=== PATIENT | male | born 1945 | race Caucasian/White ===

== ENCOUNTER 2017-05-18 10:08 | Day surgery (SDC) | payer MEDICARE, BC ==
[~2017-05-18] VITALS: Ht 175.3 cm; Wt 67.5 kg
[~2017-05-18 10:08] MED LIST: NS 1000P @30 MLS/HR (KVO) IV SCH
[2017-05-18 10:39] VITALS: BP 183/96; PULSE 66; RESP 17; TEMP 98.2; O2SAT 100
[2017-05-18] MEDS ORDERED: FIORINAL2 PO (10:46)
[2017-05-18] MEDS ORDERED: LISI10TA3 PO (10:46)
[2017-05-18] MEDS ORDERED: ATOR10TA15 PO (10:46)
[2017-05-18] MEDS ORDERED: MULT-65 PO (10:46)
[2017-05-18] MEDS ORDERED: BISO5TAB5 PO (10:46)
[2017-05-18] MEDS ORDERED: TYLE325T PO (10:46)
[2017-05-18] MEDS ORDERED: RAPA8CAP PO (10:46)
[2017-05-18] MEDS ORDERED: TRAM50TA PO (10:46)
[2017-05-18] MEDS ORDERED: OMEP20TA PO (10:46)
[2017-05-18 10:52] LABS: AUTOMATED NEUTROPHIL # 6.1 TH/MM3 (1.8-7.7); BASOPHIL % 0.3 % (0.0-2.0); EOSINOPHIL % 0.2 % (0.0-4.0); HEMATOCRIT 41.5 % (39.0-51.0); HEMO FLAGS DIFF FINAL; LYMPHOCYTE # 0.9 TH/MM3 (1.0-4.8); MEAN CELL VOLUME 93.1 FL (80.0-100.0); MEAN CORPUSCULAR HGB CONC 35.5 % (32.0-36.0); MONO % 4.9 % (0.0-8.0); NEUT % 82.6 % (16.0-70.0); PLATELET COUNT 196 TH/MM3 (150-450); RED BLOOD COUNT 4.46 MIL/MM3 (4.50-5.90); RED CELL DISTRIBUTION WIDTH 13.8 % (11.6-17.2); WHITE BLOOD COUNT 7.4 TH/MM3 (4.0-11.0)
[2017-05-18 11:01] LABS: APTT (PATIENT) 27.1 SEC (24.3-30.1); PROTHROMBIN TIME - PATIENT 11.4 SEC (9.8-11.6)
[2017-05-18 11:11] LABS: BICARBONATE 27.1 MEQ/L (21.0-32.0)
[2017-05-18] MEDS ORDERED: HEPARIN-NS/PF INJ 500 ML ONE (14:02)
[2017-05-18] MEDS ORDERED: MIDAZOLAM HCL 2 MG/2 ML VIAL ONE ×2 (14:03→14:22)
[2017-05-18] MEDS ORDERED: IOHEXOL 350 MG/ML 50 ML BTL (for Cath Lab) OTHER ONE (14:23)
[2017-05-18] MEDS ORDERED: IOHEXOL 350 MG/ML 100 ML BTL (for Cath Lab) OTHER ONE (14:23)
--- NOTE | 2017-05-18 15:02 | CATHPROC ---
Yuanfen~Flow™ HIS Report Study Information Study Number Admission Scheduled Start Study Start [id number].May 18 2017 10:08AM 05/18/2017 May 18 2017 2:00PM [facility] [employer] Service Cardiac Catheterization Admit Source Facility Department Other [facility] - Pre Planning Advisor Physician and Clinical Staff Initial Felipe Corbett Pest Control Technician Cuong Holland,SUARABH Recorder Madhu Burden,RT(R) Scrub Hieu Ivan,RT(R) Procedures Performed Procedure Location (Site) Vessel Name Angiogram LV LV Ventricle Coronary Angiograms LCA Left Coronary Coronary Angiograms RCA Right Coronary Coronary Angiograms DAVE-LAD Left Coronary Equipment Time Finish Repairer Description Size Mfg Part Number Used/Scraped TRANSDUCER, TRUWAVE [id number] 14:01 Chogger * Used W/STOCKCOCK *[id number] 534-548T *[id number] [id number] *[id number] [id number] *[id number] 14:01 [employer] INDUSTRIES PACK, CCL CUSTOM * Used *[id number] 14:01 [employer] PACER PEN, SKIN DUAL W/ RULER * Used *[id number] 14:01 Grupo A WIRE, 3MMJ .035 180CM 180CM Used *[id number] PROBE COVER, STERILE [id number] 14:01 [employer] * Used ULTRASOUND W/ GEL *[id number] 14:01 NAMIC MANIFOLD, 4 PORT * Used *[id number] 14:01 NAMIC TUBING, HIGH PRESSURE 48" 48" Used *[id number] 14:01 NYCOMED OMNIPAQUE, 350 MG, 150ML 150ML [id number] Used [id number] 14:01 [facility] BLANKET,WARM AIR CCL * Used *[id number] 14:01 TERUMO MEDICAL SHEATH, FR5 TERUMO (10CM) FR 5 [id number] Used History: Allergies Allergy Reaction Sulfa Trimethoprim History: Risk Factors Family History of Hypertension Dyslipidemia Previous OR Previous Heart Failure Premature CAD Yes Yes Yes No No Prior Valve Prior PCI Prior CABG Surgery No No No Cerebrovascular Peripheral Artery Chronic Lung On Dialysis Diabetes Disease Disease Disease No No No No No History: Stress Tests Stress or Imaging Studies Performed Yes Standard Exercise Stress Test No Stress Echo No Stress Test SPECT Stress Test SPECT Result Stress Test SPECT Ischemia Risk/Extent Yes Positive High Stress Test CMR No Cardiac CTA Coronary Calcium Score No No History: Other Current Smoker No Labs Hgb (g/dl) Hct (%) WBC (l/cumm) Platelets (thousands) 11.60-17.00 35.00-51.00 4.00-11.00 150.00-450.00 4.4 41.5 7.4 196 Glucose (mg/dl) BUN (mg/dl) Creatinine (mg/dl) BUN:Creatinine (1:x) 74.00-106.00 7.00-18.00 0.50-1.30 10.00-20.00 98 11 1.0 11 Na (meq/l) K (meq/l) 136.00-145.00 3.50-5.10 132 4 CPK-MB (ng/ML) 0.50-3.60 Not Drawn Medication Medication Total Dose (Bolus/Oral) Medication Total Dosage/Unit 1% XYLOCAINE 20 mL FENTANYL 25 mcg VERSED 2 mg Medications (Bolus/Oral) Medication Time Given Dosage/Unit Administered By Reason VERSED 05/18/2017 2:17:15 PM 1 mg Cuong Holland Patient arrived on 1 mg VERSED given by Cuong Holland RN in Left Forearm via Peripheral IV. Ordered by Felipe Alegre. FENTANYL 05/18/2017 2:18:39 PM 25 mcg Cuong Holland Patient arrived on 25 mcg FENTANYL given by Cuong Holland RN in Left Forearm via Peripheral IV. Orde red by Felipe Alegre. 1% XYLOCAINE 05/18/2017 2:23:39 PM 20 mL Felipe Alegre Patient arrived on 20 mL 1% XYLOCAINE given by Felipe Alegre in Right Groin via Subcutaneous. Order ed by Felipe Alegre. VERSED 05/18/2017 2:38:38 PM 1 mg Cuong Holland Patient arrived on 1 mg VERSED given by Cuong Holland RN in Left Forearm via Peripheral IV. Ordered by Felipe Alegre. Medication (Drip) Medication Time Given Dosage/Unit Concentration/Unit Diluent (ml) Solution IV Solutions 05/18/2017 2:07:18 PM 0 mL (IV) 500 NaCl .9 Patient arrived on IV Solutions given by Felipe Alegre in Left Forearm via Peripheral IV. Pump/Drip Flow = 20 ml/hr using NaCl .9. Ordered by Felipe Alegre. Initial Case Assessment Cardiovascular HR Rhythm NIBP Chest Pain 80 sr 204/101 0 Edema Present Skin color Skin None Normal Warm Dry Circulatory - Right Pulses Dorsalis Pedis Femoral 2 2 Scale (0,1,2,3,4,d) Circulatory - Left Pulses Dorsalis Pedis Femoral 2 2 Scale (0,1,2,3,4,d) Neurological State Oriented to time-place- Alert Moves all extremities person Respiration - General Respiration Rate SpO2 (%) O2 (lpm) (B/min) 15 100 0 Chronological Log Time Study Chronological Log 14:04:26 Patient arrived via Bed. 14:04:28 Patient Name, D.O.B, / Armband Verified By R.N. 14:04:29 Consent signed by the physician and the patient and verified by the Pre Planning Advisor staff. 14:04:31 Pre-op and post- op instructions given; patient acknowledges understanding of instructions. 14:04:40 Verbal Stimulation=2 Physical Stimulation=2 Airway=2 Respiration=2 TOTAL=8. (0=absent, 1=li mited, 2=present) 14:04:57 Presedation assessment performed by Pre Planning Advisor RN. 14:05:00 Patient has been NPO for More than 6Hrs. Vitals capture started with the following parameters, Patient=Adult, Interval=5 min, Initial Pr zxomkp=206 mmHg, 14:05:21 Deflation Rate=5 mmHg 14:05:51 Skin Breakdown-none present per patient. 14:06:44 Patient Warmer Placed on the Table. 14:06:48 A # 20 IV was noted in the Forearm (left). Grade = 0 14:06:54 ERSS=909/101 mmhg, HrM3=772.0 %, Baugh=2 Patient arrived on IV Solutions given by Felipe Alegre in Left Forearm via Peripheral IV. Pum p/Drip Flow = 20 ml/hr 14:07:18 using NaCl .9. Ordered by Felipe Alegre. 14:07:38 History and physical on the chart or being dictated. Assessment: Initial Case, HR=80 BPM, Rhythm=sr, VXZR=471/101 mmhg, Chest Pain=0, Edema=None, Co laine=Normal, Skin = Warm, Dry Right Pulses: Reed Ped=2, Femoral=2 14:07:40 Left Pulses: Reed Ped=2, Femoral=2 Neurological: State=Alert, Ox3, JEFFERY Respiration: Resp=15 B/min, XrW4=057 %, O2=0 lpm 14:08:02 Reference ECG taken 14:11:08 HR=83 bpm, HZSI=006/111 mmhg, LoS3=812.0 %, Resp=21 B/min, Baugh=2 14:16:11 HR=81 bpm, DQTF=338/106 mmhg, SpO2=99.0 %, Resp=16 B/min, Baugh=2 Patient arrived on 1 mg VERSED given by Cuong Holland RN in Left Forearm via Peripheral IV. Or dered by Codey, 14:17: Felipe. Patient arrived on 25 mcg FENTANYL given by Cuong Holland RN in Left Forearm via Peripheral IV . Ordered by Codey, : Felipe. :: Pressure channel 1 zeroed. 14:21:12 HR=81 bpm, SMTX=837/104 mmhg, OrZ6=987.0 %, Resp=12 B/min Time Out. Correct patient, correct procedure,correct physician, ,power injector loaded with jana sauceda with surgical team 14::52 present. Time Out Concurred by MD, individual staff and FEATHER SAWYER in procedure. Loaded by Cuong zelaya., verified by Hieu Ivan 14:: Presedation re-assessment performed by Pre Planning Advisor RN. 14::28 Case Start 14::29 Verbal Stimulation=2 Physical Stimulation=2 Airway=2 Respiration=2 TOTAL=8. (0=absent, 1=li mited, 2=present) Patient arrived on 20 mL 1% XYLOCAINE given by Felipe Alegre in Right Groin via Subcutaneous. Ordered by ::39 Felipe Alegre. 14::47 Access site was Right Femoral Artery. 14::52 A SHEATH, FR5 TERUMO (10CM) FR 5 was advanced into the Fem Art (right) using the Percutaneo us technique. A PIGTAIL ANG. INFINITI CATHETER FR 5 was advanced over a wire. OMNIPAQUE, 350 MG, 150ML 150ML was used 14:24:05 for injections. Recorded Pressure: LV, HR=88, Condition=Condition 1 14:26:01 (Left Ventricle) LV 184/-12/10 14:26:07 HR=84 bpm, WSZW=800/92 mmhg, PvO0=772.0 %, Resp=19 B/min, Baugh=2 14:26:17 The LV was injected at 10 cc/sec for a total of 30. OMNIPAQUE, 350 MG, 150ML 150ML used. Recorded Pressure: LV, Ao, HR=92, Condition=Condition 1 14:27:48 (Left Ventricle) LV 162/6/6, (Aorta) Ao 168/82/121 14:28:00 Catheter was removed A AR MOD INFINITI CATHETER FR 5 was advanced over a wire. OMNIPAQUE, 350 MG, 150ML 150ML was us ed for 14:28:02 injections. Recorded Pressure: Ao, HR=88, Condition=Condition 1 14:29:18 (Aorta) Ao 168/88/123 14:30:10 The RCA was injected and visualized at various angles. OMNIPAQUE, 350 MG, 150ML 150ML use d. 14:31:06 HR=86 bpm, FRIY=296/94 mmhg, LeX3=439.0 %, Resp=19 B/min, Baugh=2 14:32:23 The DAVE-LAD was injected and visualized at various angles. OMNIPAQUE, 350 MG, 150ML 150ML used. 14:33:36 Catheter was removed A JL 4.0 INFINITI CATHETER FR 5 was advanced over a wire. OMNIPAQUE, 350 MG, 150ML 150ML was u sed for 14:33:38 injections. 14:33:58 The LCA was injected and visualized at various angles. OMNIPAQUE, 350 MG, 150ML 150ML use d. 14:36:07 HR=81 bpm, ORQN=708/92 mmhg, JoT1=020.0 %, Resp=13 B/min, Baugh=2 14:36:29 Catheter was removed 14:36:42 Case End 14:37:42 Sheath removed; pressure applied to access site. 14:38:27 No case complications noted. 14:38:29 Cine recording checked. 14:38:31 Bedside Report will be given. Patient arrived on 1 mg VERSED given by Cuong Holland, RN in Left Forearm via Peripheral IV. O rdered by Codey, 14:38:38 Felipe. 14:39:07 Catheter(s) removed without difficulty 14:39: Bedside Report will be given. 14:39:28 Contrast Scanned 14:41:06 HR=84 bpm, RUYV=293/95 mmhg, KnT4=285.0 %, Resp=8 B/min, Baugh=2 14:46:03 HR=83 bpm, RIXU=234/102 mmhg, KkJ6=734.0 %, Resp=15 B/min, Baugh=2 14:51:05 HR=86 bpm, NXYD=290/107 mmhg, Resp=22 B/min, Baugh=2 14:51:15 Sterile dressing applied to site 14:53:32 [facility] End Study - Contrast Media Used In Study Contrast Total Opened (mL) Total Used (mL) Total Wasted (mL) Omnipaque 110 110 0 End Study - Maximum Contrast Load Max Contrast Load (mL) 337.5 End Study - Radiation Exposure Fluoro Time (minutes) 3.7 End Study - Patient Disposition Complications Transferred To Telemetry Bed
[2017-05-18] MEDS ORDERED: NITROGLYCERIN 400 MCG/SPRAY 4.9 GM BOTTLE SL ONE (15:22)
[2017-05-18] MEDS ORDERED: SODIUM CHLOR 0.9% 1000 ML INJ 500 ML SCH (15:34)
[2017-05-18] MEDS ORDERED: PAPAVERINE INJ 60 MG, NITROGLYCERIN INJ 100 MCG, DILTIAZEM INJ 100 MG in SODIUM CHLORID... IRRIGATION SCH (15:45)
[2017-05-18] MEDS ORDERED: INSULIN REGULAR (IV INFUSION) 100 UNITS in SODIUM CHLORIDE 0.9% INJ 99 ML IV SCH (15:45)
[2017-05-18] MEDS ORDERED: CEFAZOLIN INJ 500 MG in SODIUM CHLORIDE 0.9% IRR BTL 500 ML IRRIGATION SCH (15:45)
[2017-05-18] MEDS ORDERED: CHLORHEXIDINE GLUCONATE 4% SOLN 120 ML BTL TOPICAL SCH (15:45)
[2017-05-18] MEDS ORDERED: SODIUM CHLORIDE 0.9% FLUSH 10 ML FLUSH IV FLUSH PRN (15:45)
[2017-05-18] MEDS ORDERED: ceFAZolin 2 GM PREMIX 50 ML IV SCH (15:45)
[2017-05-18] MEDS ORDERED: METOPROLOL TARTRATE 25 MG TAB PO SCH (15:45)
--- NOTE | 2017-05-18 16:07 | EKG ---
Date Performed: 05/18/2017 Time Performed: 10:46:08 PTAGE: 71 years EKG: Sinus rhythm Right bundle branch block Abnormal ECG NO PREVIOUS TRACING DOCTOR: Shawnee Horta Interpretating Date/Time 05/18/2017 16:07:01
[2017-05-18] MEDS ORDERED: ISOSORBIDE MONONITRATE 30 MG TAB PO ONE (16:15)
[2017-05-18] MEDS ORDERED: PILL SPLITTER OTHER PRN (16:15)
--- NOTE | 2017-05-18 16:31 | PD.CONS ---
History of Present Illness Service CT Surgery Consult Requested By Dr. Alegre Reason for Consult Multivessel CAD Primary Care Physician Mary Porras M.D. Diagnoses: (1) CAD (coronary artery disease) (2) Anginal equivalent History of Present Illness 71y/o mal presents to his PCP with c/o fatigue. He was recently evaluated for elevated PSA and changed physicians leading to an EKG which was abnormal. He was referred to Dr. Alegre and had a stress test. This was abnormal as well. He underwent left heart cath today which shows multivessel CAD. He had an office echo which was unremarkable for any valve issues. He is being considered for CABG. He denies chest pain, chest pressure, diaphoresis, nausea , dyspnea, palpitations. Review of Systems Constitutional: COMPLAINS OF: Fatigue, DENIES: Diaphoretic episodes, Fever, Weight gain, Weight loss, Chills, Dizziness, Change in appetite, Night Sweats Endocrine: DENIES: Heat/cold intolerance, Polydipsia, Polyuria, Polyphagia Eyes: DENIES: Blurred vision, Diplopia, Eye inflammation, Eye pain, Vision loss , Photosensitivity, Double Vision Ears, nose, mouth, throat: DENIES: Tinnitus, Hearing loss, Vertigo, Nasal discharge, Oral lesions, Throat pain, Hoarseness, Ear Pain, Running Nose, Epistaxis, Sinus Pain, Toothache, Odynophagia Respiratory: DENIES: Apneas, Cough, Snoring, Wheezing, Hemoptysis, Sputum production, Shortness of breath Cardiovascular: DENIES: Chest pain, Palpitations, Syncope, Dyspnea on Exertion , PND, Lower Extremity Edema, Orthopnea, Claudication Gastrointestinal: DENIES: Abdominal pain, Black stools, Bloody stools, Constipation, Diarrhea, Nausea, Vomiting, Difficulty Swallowing, Anorexia Genitourinary: DENIES: Sexual dysfunction, Urinary frequency, Urinary incontinence, Urgency, Hematuria, Dysuria, Nocturia, Penile Discharge, Testicular Pain, Testicular Swelling Musculoskeletal: DENIES: Joint pain, Muscle aches, Stiffness, Joint Swelling, Back pain, Neck pain Integumentary: DENIES: Abnormal pigmentation, Nail changes, Pruritus, Rash Hematologic/lymphatic: DENIES: Bruising, Lymphadenopathy Immunologic/allergic: DENIES: Eczema, Urticaria Neurologic: DENIES: Abnormal gait, Headache, Localized weakness, Paresthesias, Seizures, Speech Problems, Tremor, Poor Balance Psychiatric: DENIES: Anxiety, Confusion, Mood changes, Depression, Hallucinations, Agitation, Suicidal Ideation, Homicidal Ideation, Delusions Past Family Social History Allergies: Coded Allergies: Sulfa (Verified Allergy, Severe, 05/18/17) Trimethoprim (Verified Allergy, Severe, 05/18/17) Past Medical History HTN BPH Hyperlipidemia Reported Medications Rapaflo 8mg po qD Lisinopril 10mg po qD Bisoprolol 5mg po qd Atorvastatin 10mg po qhs MVI 1 po qd Omeprazole 20mg po qd Family History CAD in his father and maternal uncle Social History Denies tobacco, ETOH 3 children Physical Exam Vital Signs Vital Signs Date Time Temp Pulse Resp B/P Pulse Ox O2 Delivery O2 Flow Rate FiO2 05/18/17 10:39 98.2 66 17 183/96 100 Physical Exam GENERAL: This is a well-nourished, well-developed patient, in no apparent distress. SKIN: No rashes, ecchymoses or lesions. Cool and dry. HEAD: Atraumatic. Normocephalic. No temporal or scalp tenderness. EYES: Pupils equal round and reactive. Extraocular motions intact. No scleral icterus. No injection or drainage. ENT: Nose without bleeding, purulent drainage or septal hematoma. Throat without erythema, tonsillar hypertrophy or exudate. Uvula midline. Airway patent. NECK: Trachea midline. No JVD or lymphadenopathy. Supple, nontender, no meningeal signs. CARDIOVASCULAR: Regular rate and rhythm without murmurs, gallops, or rubs. RESPIRATORY: Clear to auscultation. Breath sounds equal bilaterally. No wheezes , rales, or rhonchi. GASTROINTESTINAL: Abdomen soft, non-tender, nondistended. No hepato-splenomegaly , or palpable masses. No guarding. MUSCULOSKELETAL: Extremities without clubbing, cyanosis, or edema. No joint tenderness, effusion, or edema noted. No calf tenderness. Negative Homans sign bilaterally. NEUROLOGICAL: Awake and alert. Cranial nerves II through XII intact. Motor and sensory grossly within normal limits. Five out of 5 muscle strength in all muscle groups. Normal speech. Laboratory Laboratory Tests Test 05/18/17 10:30 White Blood Count 7.4 Red Blood Count 4.46 Hemoglobin 14.7 Hematocrit 41.5 Mean Corpuscular Volume 93.1 Mean Corpuscular Hemoglobin 33.0 Mean Corpuscular Hemoglobin 35.5 Concent Red Cell Distribution Width 13.8 Platelet Count 196 Mean Platelet Volume 8.4 Neutrophils (%) (Auto) 82.6 Lymphocytes (%) (Auto) 12.0 Monocytes (%) (Auto) 4.9 Eosinophils (%) (Auto) 0.2 Basophils (%) (Auto) 0.3 Neutrophils # (Auto) 6.1 Lymphocytes # (Auto) 0.9 Monocytes # (Auto) 0.4 Eosinophils # (Auto) 0.0 Basophils # (Auto) 0.0 CBC Comment DIFF FINAL Differential Comment Prothrombin Time 11.4 Prothromb Time International 1.0 Ratio Activated Partial 27.1 Thromboplast Time Sodium Level 132 Potassium Level 4.0 Chloride Level 97 Carbon Dioxide Level 27.1 Anion Gap 8 Blood Urea Nitrogen 11 Creatinine 1.01 Estimat Glomerular Filtration 72 Rate Random Glucose 98 Calcium Level 9.6 Result Diagram: 05/18/17 1030 05/18/17 1030 Course Stable post [facility] Assessment and Plan Problem List: (1) CAD (coronary artery disease) Status: Acute (2) Anginal equivalent Status: Acute Assessment and Plan 71y/o male presents with fatigue and multivessel CAD. CABG is recommended. I discussed the risks and benefits of surgery with him and he agrees to proceed. STS risk is as follows: and Variables - STS Adult Cardiac Surgery Database Version 2.81 RISK SCORES About the STS Risk Calculator Procedure: CAB Only Risk of Mortality: 0.757% Morbidity or Mortality: 7.373% Long Length of Stay: 2.285% Short Length of Stay: 61.893% Permanent Stroke: 0.802% Prolonged Ventilation: 4.075% DSW Infection: 0.138% Renal Failure: 1.376% Reoperation: 3.635% Plan for CABG on 05/24/17 Problem Qualifiers (1) CAD (coronary artery disease): Qualified Code: I25.119 - Coronary artery disease involving [place] coronary artery of [place] heart with angina pectoris Sherry Byrne MD May 18, 2017 16:31
[2017-05-18 16:44] LABS: BLOOD, URINE NEG (NEG); GLUCOSE,URINE NEG (NEG); KETONE, URINE TRACE mg/dL (NEG); NITRITE,URINE NEG (NEG); PH, URINE 7.5 (5.0-8.5); URINE COLOR LIGHT-YELLOW (YELLW/STRAW)
[2017-05-18 16:47] LABS: COMMENT (UR) CULT NOT INDICATED; CULTURE IF INDICATED CULT NOT INDICATED
[2017-05-18] MEDS ORDERED: SODIUM CHLOR 0.9% 1000 ML INJ 1,000 ML IV SCH (17:00)
--- NOTE | 2017-05-18 17:51 | RADRPT ---
EXAM DATE/TIME: 05/18/2017 17:05 [facility] COMPARISON: No previous studies available for comparison. INDICATIONS : Pre op cardiac surgery. MEDICAL HISTORY : Benign prostatic hyperplasia, (BPH) Hypothyroidism. Gastroesophageal reflux disease. Coronary artery disease. Hypertension. Glaucoma. Hiatal hernia. Skin cancer. SURGICAL HISTORY : Cardiac catheterization. ENCOUNTER: Initial ACUITY: 1 day PAIN SCORE: 0/10 LOCATION: Bilateral neck PEAK SYSTOLIC VELOCITIES (cm/sec): ICA/CCA RATIO: Right: 2.0 Left: 1.6 ICA: Right: 126 Left: 130 CCA: Right: 63 Left: 79 ECA: Right: 123 Left: 140 VERTEBRAL: Right: 48 antegrade Left: 50 antegrade Elevated flow velocities and ICA/CCA ratios have been found to correlate with increased degrees of vessel stenosis, calculated as percentage of diameter relative to a normal segment of distal ICA/CCA FINDINGS: There is mild to moderate plaque formation at the carotid bifurcations, slightly worse on the left si de. Probably less than 50% stenosis. No significant stenosis on the left. Vertebral artery flow anteg rade bilaterally. CONCLUSION: 1. Mild to moderate plaque at the carotid arteries bilaterally predominantly around the bifurcations and slightly worse on the right side. Stenosis less than 50%. Dante Kuhn MD on May 18, 2017 at 17:47 Board Certified Radiologist. This report was verified electronically.
--- NOTE | 2017-05-18 18:17 | RADRPT ---
EXAM DATE/TIME: 05/18/2017 16:28 [facility] COMPARISON: No previous studies available for comparison. INDICATIONS : Pre op cardiac surgery. MEDICAL HISTORY : Benign prostatic hyperplasia, (BPH) Hypothyroidism. Gastroesophageal reflux disease. Coronary artery disease. Hypertension. Glaucoma. Hiatal hernia. Skin cancer. SURGICAL HISTORY : Cardiac catheterization. ENCOUNTER: Initial ACUITY: 1 day PAIN SCORE: 0/10 LOCATION: Bilateral legs. TECHNIQUE: Venous ultrasound of the left and right leg was performed from the inguinal ligament to the proximal calf. Real-time, color Doppler and spectral tracing, compression and augmentation techniques were us ed. FINDINGS: RIGHT LEG: There is normal compressibility of the deep venous system from the inguinal region to the proximal ca lf. No echogenic clot is seen in the lumen of the common femoral, femoral, popliteal, and posterior tibial veins. There is a normal response of the venous system to proximal and distal augmentation an d respiration. LEFT LEG: There is normal compressibility of the deep venous system from the inguinal region to the proximal ca lf. No echogenic clot is seen in the lumen of the common femoral, femoral, popliteal, and posterior tibial veins. There is a normal response of the venous system to proximal and distal augmentation an d respiration. CONCLUSION: Normal examination. Dionicio Camp Jr., MD on May 18, 2017 at 18:13 Board Certified Radiologist. This report was verified electronically.
--- NOTE | 2017-05-18 18:18 | RADRPT ---
EXAM DATE/TIME: 05/18/2017 16:41 [facility] COMPARISON: No previous studies available for comparison. INDICATIONS : Pre op cardiac surgery. MEDICAL HISTORY : Benign prostatic hyperplasia, (BPH) Hypothyroidism. Gastroesophageal reflux disease. Coronary artery disease. Hypertension. Glaucoma. Hiatal hernia. Skin cancer. SURGICAL HISTORY : Cardiac catheterization. ENCOUNTER: Initial ACUITY: 1 day PAIN SCORE: 0/10 LOCATION: Bilateral legs. GREATER SAPHENOUS VEIN THIGH: PROXIMAL: Right 2 mm Left 4 mm MID: Right 3 mm Left 2 mm DISTAL: Right 3 mm Left 3 mm CALF: PROXIMAL: Right 3 mm Left 1 mm MID: Right 2 mm Left 1 mm DISTAL: Right 2 mm Left 2 mm FINDINGS: The venous system of the lower extremities are patent by color Doppler imaging. Measurements of the leg veins (in mm) are listed above. CONCLUSION: Venous mapping as detailed above. Dionicio Camp Jr., MD on May 18, 2017 at 18:15 Board Certified Radiologist. This report was verified electronically.
[2017-05-18 19:05] LABS: HDL CHOLESTEROL 32.1 MG/DL (40.0-60.0); INDIRECT BILIRUBIN 0.5 MG/DL (0.0-0.8); TOTAL BILIRUBIN ADULT 0.6 MG/DL (0.2-1.0)
--- NOTE | 2017-05-18 19:40 | RADRPT ---
EXAM DATE/TIME: 05/18/2017 19:17 [facility] COMPARISON: No previous studies available for comparison. INDICATIONS : Evaluate for pneumonia, pneumothorax, or communicable diseases. MEDICAL HISTORY : None. SURGICAL HISTORY : None. ENCOUNTER: Initial ACUITY: 1 day PAIN SCORE: 0/10 LOCATION: chest FINDINGS: PA and lateral views of the chest demonstrate the lungs to be symmetrically aerated without evidence of mass, infiltrate or effusion. A calcified granuloma within the left lung base. Calcified lymph no de within the left hilum. The cardiomediastinal contours are unremarkable. Osseous structures are in tact. CONCLUSION: 1. Prior granulomatous disease. 2. No acute cardiopulmonary disease. 3. Hyperaerated lungs. Dionicio Camp Jr., MD on May 18, 2017 at 19:37 Board Certified Radiologist. This report was verified electronically.
[2017-05-18] MEDS ORDERED: SODIUM CHLORIDE 0.9% FLUSH 10 ML FLUSH IV FLUSH SCH (21:00)
[2017-05-18] MEDS ORDERED: MUPIROCIN 2% OINT 1 APPLIC/GM SYR EACH NARE SCH (21:00)
--- NOTE | 2017-05-19 15:39 | MR ---
cc: CAROLYN BROWN DATE: INDICATION Class II angina, high-risk nuclear marker perfusion study. PROCEDURE PERFORMED 1. Retrograde left heart catheterization with left ventriculography and selective coronary angiography. 2. Left internal mammary artery angiography. ACCESS SITE Right femoral artery. EQUIPMENT USED 5-Guyanese pigtail, 5-Guyanese JL4 and AR modified coronary artery catheters. MEDICATIONS Versed IV, Fentanyl IV. CONTRAST Omnipaque 110 cc. COMPLICATIONS None. METHOD OF HEMOSTASIS Manual compression. RESULTS HEMODYNAMICS Heart rate 75 beats per minute. Left ventricular end-diastolic pressure 6 mmHg. Left ventricle 162/6/6. Aorta 162/88/123. LEFT VENTRICULOGRAPHY Left ventricular ejection fraction 60%. Wall motion normal. No mitral regurgitation. CORONARY ANGIOGRAPHY The coronary artery has 70% stenosis in the distal portion. The proximal LAD has 70% stenosis. The mid and distal LAD is patent. The first diagonal artery has 70% proximal stenosis. The second diagonal artery is patent. The third diagonal artery is patent. Left circumflex artery has 60% ostial stenosis and 90% stenosis in the proximal portion. OM-1 is patent. The right coronary is a dominant vessel with 80% stenosis in at ostium and 90% stenosis in the distal portion. PDA patent. PLV patent. The left ___ artery and left subclavian artery were patent. DIAGNOSES 1. Severe multivessel coronary artery disease. 2. Preserved left ventricular systolic function. DISPOSITION Mr. Lee was found to have evidence of severe multivessel coronary artery disease. He had high-risk nuclear myocardial perfusion study. He will be scheduled for coronary artery bypass. Dr. Byrne was consulted for cardiothoracic surgery. MD EDWARD Rodriguez/SUDARSHAN /3:04 PM /2:46 PM
== END 2017-05-18 20:00 | disposition home or self-care (01) ==
LOC: HDOC 10:08 → HDIC 10:08 → HDOC 20:00
PROVIDERS: ATTEND Internal Medicine Interventional Cardiology
DX: I25.119 Atherosclerotic heart disease of native coronary artery with unspecified angina pectoris (principal); R94.31 Abnormal electrocardiogram [ECG] [EKG]; I45.10 Unspecified right bundle-branch block; K21.9 Gastro-esophageal reflux disease without esophagitis; N40.0 Benign prostatic hyperplasia without lower urinary tract symptoms; I10 Essential (primary) hypertension; E78.5 Hyperlipidemia, unspecified; R42 Dizziness and giddiness; E03.9 Hypothyroidism, unspecified; M19.90 Unspecified osteoarthritis, unspecified site; R79.89 Other specified abnormal findings of blood chemistry; Z01.818 Encounter for other preprocedural examination
CPT/HCPCS: 71020; 80048; 80061; 80076; 81001; 85025; 85610; 85730; 86850; 86900; 86901; 86920; 87641; 93005; 93458; 93880; 93970; 93998; C1769; C1893; J1644; J2250; J3010; Q9967

== ENCOUNTER 2017-05-23 15:11 | Inpatient (IN) | payer MEDICARE, BC ==
[~2017-05-23] VITALS: Ht 175.3 cm; Wt 70.5 kg
[~2017-05-23 15:11] MED LIST changes: +BISO5TAB5 PO; +LISI10TA3 PO; +MULT-65 PO; -NS 1000P @30 MLS/HR (KVO) IV SCH; +OMEP20TA PO; +RAPA8CAP PO; +TYLE325T PO
[2017-05-24] VITALS (11 sets, daily range): BP systolic 75–183; BP diastolic 40–92; PULSE 64–139; RESP 9–18; TEMP 95.8–99.4; O2SAT 92–99
[2017-05-24] MEDS ORDERED: ARTIFICIAL TEARS OPTH OINT 3.5 APPLIC/3.5 GM TUBO ONE (05:00)
[2017-05-24] MEDS ORDERED: HEPARIN SODIUM - SQ 10,000 UNITS/ML VIAL SQ ONE (05:00)
[2017-05-24] MEDS ORDERED: PROTAMINE SULFATE 250 MG/25 ML VIAL IV ONE (05:00)
[2017-05-24] MEDS ORDERED: VECURONIUM BROMIDE 10 MG VIAL IV ONE (05:00)
[2017-05-24] MEDS ORDERED: ESMOLOL HCL 100 MG/10 ML VIAL IV ONE (05:00)
[2017-05-24] MEDS ORDERED: CALCIUM CHLORIDE 10% SOLN 1 GRAM/10 ML SYR IV ONE ×2 (05:00→16:15)
[2017-05-24] MEDS ORDERED: MAGNESIUM SULFATE 1000 MG/2 ML VIAL (PED) IV ONE (05:00)
[2017-05-24] MEDS ORDERED: PHENYLEPHRINE HCL 10 MG/ML VIAL IV ONE (05:00)
[2017-05-24] MEDS ORDERED: AMINOCAPROIC ACID INJ 250 MG/ML 20 ML VIAL IV ONE ×2 (05:00→12:06)
[2017-05-24] MEDS ORDERED: NITROGLYCERIN-DEXTROSE INJ 250 ML IV ONE (05:00)
[2017-05-24] MEDS ORDERED: LACTATED RINGER'S 1000 ML IV PRN (05:45)
[2017-05-24] MEDS ORDERED: CHLORHEXIDINE GLUCONATE 2 % 1 PACK (2 CLOTHS) TOPICAL PRN (05:45)
[2017-05-24] MEDS ORDERED: SODIUM CHLORID 0.9% 500 ML IV PRN (05:45)
[2017-05-24] MEDS ORDERED: PAPAVERINE 60 MG-NITROGLYCERIN 100 MCG-DILTIAZEM 100 MG in NS 100 ML IRRIGATION SCH ×4 (05:45)
[2017-05-24] MEDS ORDERED: METOPROLOL TARTRATE 25 MG TAB PO PRN (05:45)
[2017-05-24] MEDS ORDERED: INSULIN HUMAN REGULAR 1,000 UNITS/10 ML VIAL SQ PRN (05:45)
[2017-05-24] MEDS ORDERED: METOPROLOL TARTRATE 25 MG TAB PO SCH (05:45)
[2017-05-24] MEDS ORDERED: INSULIN REGULAR 100 UNITS in NS 100 ML IV SCH (05:45)
[2017-05-24] MEDS ORDERED: ceFAZolin 2 GM PREMIX 50 ML IV SCH (05:45)
[2017-05-24] MEDS ORDERED: POVIDONE IODINE 5% (ANTISEPSIS KIT) 4 APPLICATIONS EACH NARE PRN (05:45)
[2017-05-24] MEDS ORDERED: CEFAZOLIN 500 MG in NS IRR BTL 500 ML IRRIGATION SCH (05:45)
[2017-05-24] MEDS ORDERED: CHLORHEXIDINE GLUCONATE 4% SOLN 120 ML BTL TOPICAL SCH (05:45)
[2017-05-24] MEDS ORDERED: VANCOMYCIN HCL 1000 MG VIAL ONE (06:20)
[2017-05-24] MEDS ORDERED: methylPREDNISolone SOD SUCC 125 MG/2 ML VIAL ONE (06:21)
[2017-05-24] MEDS ORDERED: HEPARIN SODIUM - SQ 10,000 UNITS/ML VIAL ONE (06:21)
[2017-05-24] MEDS ORDERED: ceFAZolin 2 GM PREMIX 50 ML ONE (06:21)
[2017-05-24] MEDS ORDERED: CARDIOPLEGIC IRR 1,000 ML ONE (07:19)
[2017-05-24] MEDS ORDERED: HEPARIN SODIUM - IV 10,000 UNITS/10 ML VIAL ONE (07:19)
[2017-05-24] MEDS ORDERED: MANNITOL INJ 50 ML ONE (07:20)
[2017-05-24] MEDS ORDERED: POTASSIUM CHLORIDE 40 MEQ/20 ML VIAL ONE (07:20)
[2017-05-24] MEDS ORDERED: ALBUMIN HUMAN 25% 12.5 GM/50 ML BAGP IV ONE (07:20)
[2017-05-24] MEDS ORDERED: CHLORHEXIDINE GLUCONATE 2 % 1 PACK (2 CLOTHS) TOPICAL ONE (07:30)
[2017-05-24] MEDS ORDERED: DEXMEDETOMIDINE HCL 200 MCG/2 ML VIAL ONE (11:40)
[2017-05-24] MEDS ORDERED: LACTATED RINGER'S 1000 ML INJ 500 ML IV PRN (11:44)
[2017-05-24] MEDS ORDERED: hydrALAZINE HCL 20 MG/ML VIAL IV PRN (11:45)
[2017-05-24] MEDS ORDERED: CALCIUM CHLORIDE 10% 1 GRAM/10 ML VIAL IV PRN (11:45)
[2017-05-24] MEDS ORDERED: ACETAMINOPHEN 650 MG SUPP RECTAL PRN (11:45)
[2017-05-24] MEDS ORDERED: RESP: RACEPINEPHRINE 2.25% 0.5 ML NEB NEB PRN (11:45)
[2017-05-24] MEDS ORDERED: ONDANSETRON HCL 4 MG/2 ML VIAL IV PUSH PRN (11:45)
[2017-05-24] MEDS ORDERED: POTASSIUM CHLORIDE 20 MEQ CONTROLLED RELEASE TAB PO PRN ×2 (11:45)
[2017-05-24] MEDS ORDERED: CALCIUM CHLORIDE INJ 1 GM in SODIUM CHLORIDE 0.9% INJ 100 ML IV PRN (11:45)
[2017-05-24] MEDS ORDERED: SODIUM CHLORIDE 0.9% FLUSH 10 ML FLUSH IV FLUSH PRN (11:45)
[2017-05-24] MEDS ORDERED: CLEVIDIPINE INJ 50 ML IV SCH (11:45)
[2017-05-24] MEDS ORDERED: INSULIN REGULAR (IV INFUSION) 100 UNITS in SODIUM CHLORIDE 0.9% INJ 99 ML IV SCH (11:45)
[2017-05-24] MEDS ORDERED: DEXTROSE 50% IN WATER 50 ML VIAL(D50) IV PUSH PRN (11:45)
[2017-05-24] MEDS ORDERED: ACETAMINOPHEN 325 MG TAB PO SCH (11:45)
[2017-05-24] MEDS ORDERED: RESP: ALBUTEROL 2.5 MG/IPRATROPIUM 0.5 MG NEB (PRN) NEB (11:45)
[2017-05-24] MEDS ORDERED: POTASSIUM CHLOR 20 MEQ PREMIX 100 ML IV PRN ×2 (11:45)
[2017-05-24] MEDS ORDERED: MAGNESIUM SULFATE INJ 2 GM in SODIUM CHLORIDE 0.9% INJ 100 ML IV PRN ×4 (11:45)
--- NOTE | 2017-05-24 11:57 | PD.OP ---
cc: Sherry Byrne MD; Felipe Alegre MD Operative Report Date of Surgery: May 24, 2017 Preoperative Diagnosis: (1) CAD (coronary artery disease) (2) Anginal equivalent Postoperative Diagnosis: same Procedure: CABG x 4 DAVE to LAD SVG to D1 - good SVG to OM1 - good SVG to PDA - good EVH (both legs) Anesthesia: Dr. Alicea Surgeon: Sherry Byrne [employer] Faculty Member(s): CARLY Gamble Operation and Findings: The risks, benefits, complications, treatment options, and expected outcomes were discussed with the patient. The possibilities of reaction to medication, pulmonary aspiration, perforation of viscus, bleeding, recurrent infection, the need for additional procedures, failure to diagnose a condition, and creating a complication requiring transfusion or operation were discussed with the patient. The patient concurred with the proposed plan, giving informed consent. The site of surgery properly noted/marked. The patient was taken to Operating Room, identified as Raul Tapiatt and the procedure verified as CABG, EVH. A Time Out was held and the above information confirmed. Standard monitoring lines and Bravo catheter were placed. General anesthesia was induced. The patient was prepped and draped in a sterile fashion. A median sternotomy was performed and electrocautery was used to obtain hemostasis. The left internal mammary artery was procured as a pedicle from the 7th rib to the 1st rib in the usual manner. Simultaneously left and right greater saphenous vein was procured using a minimally invasive endoscopic technique. The left lower leg vein was too small to use as conduit. The vein was prepared for anastomosis and the leg wounds were irrigated and closed in 2 layers. The pericardium was opened and a pericardial sling was created using interrupted 0 silk sutures. The patient was heparinized for cardiopulmonary bypass and the distal mammary pedicle was instrumented for anastomosis. The heart was instrumented for cardiopulmonary bypass in the usual manner. Antegrade blood cardioplegia was employed. The patient was placed on cardiopulmonary bypass. An aortic cross-clamp was applied and the heart was arrested using cold blood cardioplegia. Antegrade cardioplegia was administered after he each anastomosis. After adequate arrest, the distal right coronary circulation was investigated and the PDA was opened with a Kenaitze blade and found to be a 1.5 millimeter good target. Saphenous vein was approximated to the PDA artery using a running 7 0 Prolene suture. The graft was measured for length and orientation and the proximal anastomosis was constructed to the ascending aorta using a running 5 0 Prolene suture after creating an aortotomy with a 5 millimeter punch. The 1st circumflex marginal artery was then opened with a Kenaitze blade and found to be a 1.5 millimeter good target. Saphenous vein was approximated to the OM1 artery using a running 7 0 Prolene suture. The graft was measured for length and orientation and the proximal anastomosis was constructed to the ascending aorta using a running 5 0 Prolene suture after creating an aortotomy with a 5 millimeter punch. The 1st diagonal artery was then opened with a Kenaitze blade and found to be a 1.5 millimeter good target. Saphenous vein was approximated to the D1 artery using a running 7 0 Prolene suture. The graft was measured for length and orientation and was suspended from the pericardium. The distal LAD was opened with a Kenaitze blade and found to be a 1.5 millimeter good target. The left internal mammary artery was approximated to the LAD using a running 7 0 Prolene suture. The pedicle was attached to the epicardium using interrupted 5 0 silk suture. The patient was systemically rewarmed and received a hotshot dose of warm blood cardioplegia. The aorta was vented and the proximal anastomosis to the D1 graft was accomplished using a running 5 0 Prolene suture after creating an aortotomy was a 5 millimeter punch. The cross-clamp was removed and all proximal and distal anastomoses were examined for hemostasis. The patient was weaned from cardiopulmonary bypass. Protamine was given. There was no adverse reaction. Decannulation was carried out without incident. Wound was checked for hemostasis which was obtained using electrocautery. A 36 Danish mediastinal and 32 Danish left pleural chest tubes were were placed and secured to the skin with 0 silk suture. The sternum was closed with stainless steel wire. The fascia was closed with 1. PDS. The subcutaneous tissue was closed using a running 2-0 Vicryl suture. The skin was closed with 4-0 Monocryl. Sterile dressings were placed. At the end of the operation, all sponge, instruments, and needle counts were correct. The patient was transferred to the CVICU in stable condition. Findings: good distal targets XC: 62 min CPB: 80 min Drains: mediastinal x 1 pleural x 1 Complications: none Disposition: to CVICU in stable condition Sherry Byrne MD May 24, 2017 11:57
[2017-05-24] MEDS ORDERED: VECURONIUM BROMIDE 20 MG VIAL IV ONE (12:06)
[2017-05-24] MEDS ORDERED: LACTATED RINGER'S 1000 ML INJ 1,000 ML IV ONE (12:06)
[2017-05-24] MEDS ORDERED: SODIUM CHLOR 0.9% 250 ML INJ 500 ML IV ONE (12:07)
[2017-05-24] MEDS ORDERED: NORMOSOL R INJ 1,000 ML IV ONE (12:08)
[2017-05-24] MEDS ORDERED: SODIUM CHLORID 0.9% 500 ML INJ 500 ML IV ONE (12:08)
[2017-05-24] MEDS ORDERED: ceFAZolin INJ 1,000 MG VIAL ONE (12:13)
[2017-05-24] MEDS ORDERED: Post-op Orders (for Pharmacy) MISC OTHER ONE (12:30)
[2017-05-24] MEDS ORDERED: DEXTROSE 50% IN WATER 50 ML SYRINGE ONE (13:09)
[2017-05-24] MEDS ORDERED: MIDAZOLAM HCL 5 MG/5 ML VIAL ONE (13:24)
[2017-05-24] MEDS ORDERED: fentaNYL CITRATE 1000 MCG/20 ML VIAL ONE (13:24)
[2017-05-24] MEDS ORDERED: PHENYLEPHRINE HCL 10 MG/ML VIAL ONE (13:25)
[2017-05-24] MEDS ORDERED: DOPamine INJ PREMIX 500 ML ONE (13:31)
[2017-05-24] MEDS ORDERED: EPINEPHrine HCL (1:1000) 1 MG/ML VIAL ONE (13:41)
--- NOTE | 2017-05-24 13:45 | RADRPT ---
EXAM DATE/TIME: 05/24/2017 12:50 [facility] COMPARISON: No previous studies available for comparison. INDICATIONS : Post op heart surgery. MEDICAL HISTORY : Benign prostatic hyperplasia, (BPH) Hypothyroidism. Gastroesophageal reflux disease. Coronary artery disease. Hypertension. Glaucoma. Hiatal hernia. Skin cancer. SURGICAL HISTORY : Cardiac catheterization. ENCOUNTER: Subsequent ACUITY: 2 days PAIN SCORE: Non-responsive. LOCATION: Bilateral chest FINDINGS: An endotracheal tube has its tip approximately 3 cm above the lizandro. There is a tiny left apical pn eumothorax measuring 8 mm. Left-sided chest tube is noted. Mediastinal drain is also noted. A right internal jugular central line has its tip at the junction of the superior vena cava and right atrium . Patchiness is noted within the left lung base consistent with atelectasis and/or infiltrate. Medi an sternotomy wires are noted status post cardiac surgery. CONCLUSION: 1. Tiny left apical pneumothorax measuring 8 mm. 2. Multiple tubes and lines are in good positions. 3. Left basilar patchiness consistent with atelectasis and/or mild infiltrate. Clinical correlation i s recommended. Steven Gonsalez MD on May 24, 2017 at 13:26 Board Certified Radiologist. This report was verified electronically.
[2017-05-24 13:58] LABS: MEAN CELL VOLUME 94.5 FL (80.0-100.0); MEAN CORPUSCULAR HEMOGLOBIN 32.9 PG (27.0-34.0); MEAN CORPUSCULAR HGB CONC 34.8 % (32.0-36.0); PLATELET COUNT 47 TH/MM3 (150-450); RED BLOOD COUNT 1.77 MIL/MM3 (4.50-5.90); RED CELL DISTRIBUTION WIDTH 13.6 % (11.6-17.2); WHITE BLOOD COUNT 8.7 TH/MM3 (4.0-11.0)
[2017-05-24 14:00] LABS: REVIEW FLAG AUTO DIFF
[2017-05-24 14:05] LABS: HEMATOCRIT 16.7 % (39.0-51.0)
[2017-05-24] MEDS ORDERED: AMIODARONE INJ 450 MG in D5W (EXCEL BAG) 241 ML IV SCH (14:15)
[2017-05-24] MEDS ORDERED: MILRINONE 20 MG/NS 100 ML (0.375 mcg/kg/min) IV SCH ×2 (14:15)
[2017-05-24] MEDS ORDERED: MIDAZOLAM 100 MG/ML INJ 100 ML IV SCH (14:30)
--- NOTE | 2017-05-24 14:48 | PD.CONS ---
HPI Service Critical Care Medicine Consult Requested By Dr. Jesus Reason for Consult Cardiogenic shock Blood loss anemia Respiratory failure s/p CABG x 4 Atrial fibrillation with RVR Nonsustained V. tach Primary Care Physician Unknown History of Present Illness Patient is a 71-year-old male with past medical history significant for BPH, hypertension, dyslipidemia who was admitted for elective CABG. An outpatient stress test with Dr. Alegre was abnormal and patient underwent left heart cath which shows multivessel CAD. Apparently 2-D echo showed normal ejection fraction. Patient underwent CABG today by Dr. Jesus: CABG x 4, DAVE to LAD, SVG to D1, SVG to OM1 and SVG to PDA. Patient remained stable intraoperatively, but came to CV ICU from OR hypotensive, initially stabilized with Jorge- Synephrine pushes by anesthesia. 2L crystalloid boluses were given. Few minutes later patient became profoundly hypotensive. Systolic blood pressure dropped to 60s, heart rate dropped to 30, patient received epinephrine 1 and atropine 1 amp. Following this patient was placed on Jorge-Synephrine infusion and epinephrine infusion at 2 mcg/m, critical care medicine was consulted. On my arrival patient was profoundly hypotensive, 2 D Echo was being done. RV appears dilated with low ejection fraction, LV ejection fraction was also down approximately 35-40%. Patient was in A. fib with RVR and had received 150 mg of IV amiodarone bolus. Patient also given 100 milligram of lidocaine for V. tach. He was receiving 2 units of blood. For a hemoglobin of 5.8. I ordered norepinephrine gtt and rapidly increased to 15 mcg/m to ensure adequate cardiac perfusion. Repeat echo showed improving LV and RV function, now on norepinephrine 15 mcg/m and epinephrine 2 mcg/m. By this time patient had received at least 4L, and 2U PRBC. Case extensively discussed with Dr. Jesus at the bedside. Will transfuse additional 2 units of blood and one pack unit of platelet Review of Systems ROS Limitations: Intubated Past Family Social History Allergies: Coded Allergies: Sulfa (Verified Allergy, Severe, 05/24/17) Trimethoprim (Verified Allergy, Severe, 05/24/17) Past Medical History HTN BPH Hyperlipidemia Past Surgical History No major past surgeries I can find in the chart Reported Medications Rapaflo 8mg po qD Lisinopril 10mg po qD Bisoprolol 5mg po qd Atorvastatin 10mg po qhs MVI 1 po qd Omeprazole 20mg po qd Active Ordered Medications Reviewed Family History Unable to obtain as the patient is intubated and sedated Social History No alcohol or tobacco use Physical Exam Vital Signs Vital Signs Date Time Temp Pulse Resp B/P Pulse Ox O2 Delivery O2 Flow Rate FiO2 05/24/17 12:33 97 60 05/24/17 06:10 98.8 64 18 183/92 99 Physical Exam GENERAL: This is a well-nourished, well-developed patient, intubated currently not on any sedation SKIN: Cool and dry. HEAD: Atraumatic. Normocephalic. EYES: Pupils equal round and reactive. No injection or drainage. ENT: Nose without bleeding, orotracheally intubated NECK: Trachea midline. No JVD or lymphadenopathy. CHEST: Midline CABG dressing intact. Mediastinal and Chest tube with sanguinous output CARDIOVASCULAR: Pericardial rub heard clearly in all areas. Cardiogenic shock currently on Levophed and epinephrine RESPIRATORY: Breath sounds equal bilaterally. No wheezes, rales, or rhonchi. GASTROINTESTINAL: Abdomen soft, non-tender, nondistended. No hepato-splenomegaly , or palpable masses. No guarding. NEUROLOGICAL: Patient is still under the influence of anesthesia. He spontaneously moves extremities not opening eyes yet Laboratory Laboratory Tests Test 05/24/17 05/24/17 05/24/17 05:45 13:45 14:14 Blood Type B POSITIVE Antibody Screen NEGATIVE Crossmatch Leukocyte-Reduced Leukocyte-Reduced Red Blood Red Blood Cells Cells Blood Bank Comment White Blood Count 8.7 Red Blood Count 1.77 Hemoglobin 5.8 Hematocrit 16.7 Mean Corpuscular Volume 94.5 Mean Corpuscular Hemoglobin 32.9 Mean Corpuscular Hemoglobin 34.8 Concent Red Cell Distribution Width 13.6 Platelet Count 47 Mean Platelet Volume 8.1 Result Diagram: 05/24/17 8975 Imaging Chest x-ray shows chest and mediastinal tubes, pulmonary vascular congestion Assessment and Plan Assessment and Plan ASSESSMENT: Cardiogenic shock Blood loss anemia Respiratory failure s/p CABG x 4 Atrial fibrillation with RVR Nonsustained V. tach Coronary artery disease Hypertension Dyslipidemia PLAN: NEURO: Postop pain - Start Versed infusion for patient comfort and ventilator synchrony - When necessary morphine for pain RESP: Acute respiratory failure - Continue mechanical ventilation ACV mode - DuoNeb every 6 hours and when necessary, ventilator bundle - Spontaneous breathing trials only after clinical stabilization CV: Cardiogenic shock Hypovolemia ' Atrial fibrillation with RVR Nonsustained V. tach Coronary artery disease Status post CABG 4 - Received 4 L crystalloids. Continue fluid resuscitation. 4 units of PRBC transfusion ordered - Titrate Levophed to keep map above 65. Wean to DC epinephrine infusion - Amiodarone 150 mg bolus and infusion per protocol - Received lidocaine for V. tach - Bedside echo reviewed personally. Initially RV and LV functions were down, improved with starting Levophed and improvement in perfusion GI: - Nothing by mouth, IV Protonix : - Monitor renal function closely. Bravo catheter. HEME: - Monitor CBC, CMP, coags - Receiving 4 units of blood and one pack units of platelets ID: - Perioperative antibiotics per CT surgery ENDO: - Electrolyte replacement per CV ICU protocol - IV insulin for tight sugar control PROPH: - Avoid chemical DVT prophylaxis until plt count is > 100, and post. IV Protonix CC time 82 min Very critically ill 71-year-old male. He is just postop developed severe hypotension with systolic blood pressure-50s to low 60s, hemoglobin 5.8 patient was also bradycardic impending cardiac arrest. Received epinephrine and atropine IV, now stabilizing with blood transfusion and norepinephrine infusions Code Status Full Discussed Condition With Dr. Jesus, bedside RN Zuleika Hull MD May 24, 2017 14:48
[2017-05-24 15:24] LABS: BLOOD GAS BASE EXCESS -3.7 mmol/L (-2-2); BLOOD GAS CARBOXYHEMOGLOBIN 1.2 % (0-4); BLOOD GAS HCO3 21 mmol/L (22-26); BLOOD GAS METHEMOGLOBIN 1.1 % (0-2); BLOOD GAS O2 HGB SATURATION 97 % (90-100); BLOOD GAS OXYGEN CONTENT 18.5 Vol % (12.0-20.0); BLOOD GAS PCO2 41 mmHg (38-42); BLOOD GAS PO2 190 mmHg (61-120); BLOOD GAS TOTAL HGB 13.3 G/DL (12.0-16.0); CRITICAL VALUE NO; OXYGEN DEVICE VENTILATOR; TEMP CORR TO 98.6
[2017-05-24 15:25] LABS: DRAW SITE ART LINE; FIO2 100 %; STAT NO; VENT SETTINGS AC14/500/5PEEP
--- NOTE | 2017-05-24 15:37 | RADRPT ---
EXAM DATE/TIME: 05/24/2017 14:13 [facility] COMPARISON: CHEST SINGLE AP, May 24, 2017, 12:50. INDICATIONS : Cardiac distress. MEDICAL HISTORY : Benign prostatic hyperplasia, (BPH) Hypothyroidism. Gastroesophageal reflux disease. Coronary artery disease. Hypertension. Glaucoma. Hiatal hernia. Skin cancer. SURGICAL HISTORY : Cardiac catheterization. ENCOUNTER: Subsequent ACUITY: 1 day PAIN SCORE: Non-responsive. LOCATION: Bilateral chest FINDINGS: There is interval worsening infiltrates bilaterally consistent with probable moderate pulmonary vascu lar congestion. Clinical correlation is recommended. Multiple tubes and lines are stable. The prev iously noted left apical pneumothorax is not well visualized and likely has resolved CONCLUSION: 1. Interval worsening pulmonary infiltrates consistent with probable moderate pulmonary vascular con gestion. Clinical correlation is recommended. 2. Multiple tubes and lines are stable. Steven Gonsalez MD on May 24, 2017 at 14:59 Board Certified Radiologist. This report was verified electronically.
--- NOTE | 2017-05-24 15:38 | ECHRPT ---
Indication: Atherosclerotic heart disease of saxman coronary artery with unstable angina pectoris CONCLUSIONS The left ventricular systolic function is normal with an estimated ejection fraction in the range of 55-60%. Moderate concentric left ventricular hypertrophy. The right ventricle is mildly dilated. The right ventricular systoilc function is mildly decreased. Mild mitral valve reguritation. Trace aortic valve regurgitation. BP: / HR: Rhythm: MEASUREMENTS (Male / Female) Normal Values Technical Quality: 2D ECHO LV Diastolic Diameter PLAX 3.3 cm 4.2 - 5.9 / 3.9 - 5.3 cm LV Systolic Diameter PLAX 2.3 cm IVS Diastolic Thickness 1.2 cm 0.6 - 1.0 / 0.6 - 0.9 cm LVPW Diastolic Thickness 1.0 cm 0.6 - 1.0 / 0.6 - 0.9 cm LV Relative Wall Thickness 0.7 RV Internal Dim ED PLAX 2.8 cm LA Systolic Diameter LX 3.9 cm 3.0 - 4.0 / 2.7 - 3.8 cm DOPPLER Mitral E Point Velocity 69.6 cm/s TR Peak Velocity 235.0 cm/s TR Peak Gradient 22.1 mmHg FINDINGS LEFT VENTRICLE Normal left ventricular size. Moderate concentric left ventricular hypertrophy. The left ventricular systolic function is normal with an estimated ejection fraction in the range of 55-60%. RIGHT VENTRICLE The right ventricle is mildly dilated. The right ventricular systoilc function is mildly decreased. LEFT ATRIUM The left atrial size is normal. RIGHT ATRIUM The right atrial size is upper limits of normal. A prominent chiari network is observed in the right atrial cavity (benign finding). ATRIAL SEPTUM The interatrial septum not well visualized. AORTA The aortic root and proximal ascending aorta are normal in size on limited imaging. MITRAL VALVE Mild mitral valve reguritation. Structurally normal mitral valve. AORTIC VALVE Trace aortic valve regurgitation. TRICUSPID VALVE Structurally normal tricuspid valve. No tricuspid valve stenosis or regurgitation. PULMONARY VALVE The pulmonary valve is not well visualized. VESSELS The inferior vena cava is normal in size. PERICARDIUM No pericardial effusion. Jose L Landis DO (Electronically Signed) Final Date:24 May 2017 15:38 Amended: 24 May 2017 15:41
[2017-05-24] MEDS ORDERED: NOREPINEPHRINE 4 MG/D5W 250 ML IV SCH (16:00)
[2017-05-24] MEDS ORDERED: EPINEPHrine 4 MG/D5W 250 ML IV SCH ×2 (16:00)
[2017-05-24] MEDS ORDERED: PHENYLEPHRINE 40 MG/D5W 496 ML ADMIX IV SCH ×2 (16:00)
[2017-05-24] MEDS ORDERED: SODIUM BICARBONATE 8.4% INJ 50 MEQ/50 ML SYR IV ONE (16:15)
[2017-05-24] MEDS ORDERED: LIDOCAINE HCL 2% 100 MG/5 ML SYRINGE IV PUSH ONE (16:15)
[2017-05-24] MEDS ORDERED: EPINEPHrine HCL (1:1000) 1 MG/ML VIAL IV ONE (16:15)
[2017-05-24] MEDS ORDERED: AMIODARONE HCL 150 MG/3 ML VIAL IV ONE (16:15)
[2017-05-24] MEDS ORDERED: ATROPINE SULFATE 1 MG/10 ML SYRINGE IV ONE (16:15)
[2017-05-24] MEDS: POTASSIUM CHLOR 20 MEQ PREMIX 100 ML IV PRN ×2 (16:16→21:08)
[2017-05-24] MEDS ORDERED: FUROSEMIDE 40 MG/4 ML VIAL ONE (16:27)
[2017-05-24] MEDS: ACETAMINOPHEN 1000 MG/100 ML VIAL IV SCH ×2 (16:43→20:00)
[2017-05-24] MEDS ORDERED: DOPamine 800 MG/D5W PREMIX 500 ML IV SCH (16:45)
[2017-05-24 16:52] LABS: AUTOMATED NEUTROPHIL # 11.3 TH/MM3 (1.8-7.7); BASOPHIL % 0.1 % (0.0-2.0); HEMATOCRIT 44.6 % (39.0-51.0); HEMO FLAGS DIFF FINAL; LYMPH % 2.9 % (9.0-44.0); LYMPHOCYTE # 0.4 TH/MM3 (1.0-4.8); MEAN CELL VOLUME 88.4 FL (80.0-100.0); MEAN CORPUSCULAR HEMOGLOBIN 29.9 PG (27.0-34.0); MEAN CORPUSCULAR HGB CONC 33.8 % (32.0-36.0); MONO % 6.1 % (0.0-8.0); NEUT % 90.9 % (16.0-70.0); PLATELET COUNT 121 TH/MM3 (150-450); RED BLOOD COUNT 5.04 MIL/MM3 (4.50-5.90); WHITE BLOOD COUNT 12.4 TH/MM3 (4.0-11.0)
[2017-05-24 17:07] LABS: ALT (GPT) 13 U/L (12-78); ANION GAP 8 MEQ/L (5-15); AST (GOT) 31 U/L (15-37); BICARBONATE 26.8 MEQ/L (21.0-32.0); BLOOD UREA NITROGEN 9 MG/DL (7-18); CHLORIDE 105 MEQ/L (98-107); GLOMERULAR FILTRATION RATE 98 ML/MIN (>89); POTASSIUM 4.3 MEQ/L (3.5-5.1); SODIUM (NA) 140 MEQ/L (136-145)
[2017-05-24 17:09] LABS: ALKALINE PHOSPHATASE 65 U/L (45-117); TOTAL BILIRUBIN ADULT 1.3 MG/DL (0.2-1.0)
[2017-05-24] MEDS: RESP: ALBUTEROL 2.5 MG/IPRATROPIUM 0.5 MG NEB (SCH) NEB ×2 (17:58→21:02)
[2017-05-24] MEDS: CHLORHEXIDINE 0.12% (ORAL KIT) 15 ML CUP MT SCH (20:00)
[2017-05-24] MEDS ORDERED: AMIODARONE 200 MG TAB PO SCH (21:00)
[2017-05-24] MEDS: METOCLOPRAMIDE HCL 10 MG/2 ML VIAL IV PUSH SCH (21:08)
[2017-05-24] MEDS: oxyCODONE/ACETAMINOPHEN 5 MG/325 MG TAB PO PRN (21:30)
[2017-05-25] VITALS (9 sets, daily range): BP systolic 112–142; BP diastolic 38–82; PULSE 73–86; RESP 14–20; TEMP 98.4–99.5; O2SAT 93–97
[2017-05-25] MEDS: ACETAMINOPHEN 1000 MG/100 ML VIAL IV SCH ×2 (02:00→08:10)
[2017-05-25] MEDS: oxyCODONE/ACETAMINOPHEN 5 MG/325 MG TAB PO PRN ×5 (03:22→19:58)
[2017-05-25] MEDS: RESP: ALBUTEROL 2.5 MG/IPRATROPIUM 0.5 MG NEB (SCH) NEB ×4 (04:12→20:34)
--- NOTE | 2017-05-25 04:31 | RADRPT ---
EXAM DATE/TIME: 05/25/2017 03:54 [facility] COMPARISON: CHEST SINGLE AP, May 24, 2017, 14:13. INDICATIONS : Status post CABG. MEDICAL HISTORY : Benign prostatic hyperplasia, (BPH) Hypothyroidism. Gastroesophageal reflux disease. Coronary artery disease. Hypertension. Glaucoma. Hiatal hernia. Skin cancer. SURGICAL HISTORY : CABG. Cardiac catheterization. ENCOUNTER: Subsequent ACUITY: 1 week PAIN SCORE: 0/10 LOCATION: chest FINDINGS: Chest tube is present on the left side. There is a questionable tiny left apical pneumothorax. Right IJ line is present with tip overlapping the expected region of the SVC. There is hazy parenchymal [place] bilaterally probably pulmonary edema. Slight left lung base consolidation is also seen. CONCLUSION: Pulmonary edema and slight left lung base consolidation. Questionable tiny left apical pneumothorax. Avery Zarate MD on May 25, 2017 at 4:28 Board Certified Radiologist. This report was verified electronically.
[2017-05-25 04:42] LABS: HEMATOCRIT 44.1 % (39.0-51.0); MEAN CELL VOLUME 87.4 FL (80.0-100.0); MEAN CORPUSCULAR HGB CONC 34.3 % (32.0-36.0); PLATELET COUNT 147 TH/MM3 (150-450); RED BLOOD COUNT 5.05 MIL/MM3 (4.50-5.90); RED CELL DISTRIBUTION WIDTH 15.9 % (11.6-17.2); REVIEW FLAG FINAL; WHITE BLOOD COUNT 12.3 TH/MM3 (4.0-11.0)
[2017-05-25 05:05] LABS: MAGNESIUM 1.9 MG/DL (1.5-2.5); POTASSIUM 4.2 MEQ/L (3.5-5.1)
[2017-05-25] MEDS: PANTOPRAZOLE SOD 40 MG DELAYED RELEASE TAB PO SCH (06:20)
[2017-05-25] MEDS: METOCLOPRAMIDE HCL 10 MG/2 ML VIAL IV PUSH SCH ×4 (06:20→19:59)
[2017-05-25] MEDS ORDERED: BISACODYL 10 MG SUPP RECTAL PRN (07:45)
[2017-05-25] MEDS ORDERED: DEXTROSE 50% IN WATER 50 ML VIAL(D50) IV PRN (07:45)
[2017-05-25] MEDS ORDERED: GLUCAGON 1 MG/ML VIAL OTHER PRN ×2 (07:45→15:15)
[2017-05-25] MEDS ORDERED: SOD PHOSPHATE/SOD BIPHOSPHATE (ADULT) ENEMA 133ML RECTAL PRN (07:45)
--- NOTE | 2017-05-25 07:45 | PD.CAR.PN ---
CVT Progress Note CVT: POD #: 1 Subjective/Hospital Course: Had an episode of hemodynamic instability and profound anemia which responded to inotropic support and transfusion. No residual issues this morning. Objective: Vital Signs Date Time Temp Pulse Resp B/P Pulse Ox O2 Delivery O2 Flow Rate FiO2 05/25/17 04:00 95 Nasal Cannula 2.00 05/25/17 03:00 79 05/25/17 03:00 99.5 80 18 127/78 96 137/66 05/25/17 00:00 96 Nasal Cannula 3.00 05/24/17 23:00 81 05/24/17 23:00 99.0 86 16 135/69 95 148/71 05/24/17 21:02 96 Nasal Cannula 3.00 05/24/17 20:00 97 Nasal Cannula 3.00 05/24/17 19:00 99 Nasal Cannula 4.00 05/24/17 19:00 92 05/24/17 19:00 99.4 91 18 122/81 99 133/67 05/24/17 17:35 92 Nasal Cannula 4 05/24/17 17:35 94 Nasal Cannula 4.00 05/24/17 17:35 96 Nasal Cannula 4.00 05/24/17 16:00 96 05/24/17 16:00 95.8 89 14 135/81 97 148/74 05/24/17 16:00 45 05/24/17 16:00 97 Mechanical Ventilator 45 05/24/17 15:00 99 Mechanical Ventilator 80 05/24/17 14:45 95 40 05/24/17 13:45 139 05/24/17 13:30 73 Mechanical Ventilator 100 05/24/17 13:30 100 05/24/17 13:30 99 100 05/24/17 12:45 97 Mechanical Ventilator 40 05/24/17 12:33 97 60 05/24/17 12:30 96.5 96 9 75/40 95 05/24/17 12:30 60 05/24/17 12:30 96 05/24/17 12:30 95 Mechanical Ventilator 60 Labs: Laboratory Tests Test 05/25/17 04:10 White Blood Count 12.3 TH/MM3 (4.0-11.0) Red Blood Count 5.05 MIL/MM3 (4.50-5.90) Hemoglobin 15.1 GM/DL (13.0-17.0) Hematocrit 44.1 % (39.0-51.0) Mean Corpuscular Volume 87.4 FL (80.0-100.0) Mean Corpuscular Hemoglobin 30.0 PG (27.0-34.0) Mean Corpuscular Hemoglobin 34.3 % Concent (32.0-36.0) Red Cell Distribution Width 15.9 % (11.6-17.2) Platelet Count 147 TH/MM3 (150-450) Mean Platelet Volume 8.4 FL (7.0-11.0) Sodium Level 138 MEQ/L (136-145) Potassium Level 4.2 MEQ/L (3.5-5.1) Chloride Level 102 MEQ/L (98-107) Carbon Dioxide Level 29.0 MEQ/L (21.0-32.0) Anion Gap 7 MEQ/L (5-15) Blood Urea Nitrogen 14 MG/DL (7-18) Creatinine 0.98 MG/DL (0.60-1.30) Estimat Glomerular Filtration 75 ML/MIN (>89) Rate Random Glucose 103 MG/DL (74-106) Calcium Level 8.5 MG/DL (8.5-10.1) Magnesium Level 1.9 MG/DL (1.5-2.5) Result Diagram: 05/25/1740905/25/17 041 Imaging: Last 24 hours Impressions Chest X-Ray 05/25/17 0500 Signed Impressions: Service Date/Time: Thursday, May 25, 2017 03:54 - CONCLUSION: Pulmonary edema and slight left lung base consolidation. Questionable tiny left apical pneumothorax. Avery Zarate MD Cardiovascular: RRR Telemetry: NSR Pulmonary: Few crackles bilat GI/: NABS/NT Incision: dry and intact CT: 1250ml since OR Plan: Transfer to stepdown Diurese Advance diet Remove packer D/C amio drip - start 400mg BID Hold beta valeria today statin started Ambulate x 6, up to chair Sherry Byrne MD May 25, 2017 07:45
[2017-05-25] MEDS: CHLORHEXIDINE 0.12% (ORAL KIT) 15 ML CUP MT SCH ×2 (08:00→20:00)
--- NOTE | 2017-05-25 08:27 | EKG ---
Date Performed: 05/25/2017 Time Performed: 05:06:08 PTAGE: 71 years EKG: Sinus rhythm Short DC interval Right bundle branch block Abnormal ECG NO PREVIOUS TRACING DOCTOR: Dre Mariee Interpretating Date/Time 05/25/2017 08:27:31
--- NOTE | 2017-05-25 08:29 | HHI.CCPN ---
Subjective Remarks/Hospital Course Patient is a 71-year-old male with past medical history significant for BPH, hypertension, dyslipidemia who was admitted for elective CABG. An outpatient stress test with Dr. Alegre was abnormal and patient underwent left heart cath which shows multivessel CAD. Apparently 2-D echo showed normal ejection fraction. Patient underwent CABG today by Dr. Jesus: CABG x 4, DAVE to LAD, SVG to D1, SVG to OM1 and SVG to PDA. Patient remained stable intraoperatively, but came to CV ICU from OR hypotensive, initially stabilized with Jorge- Synephrine pushes by anesthesia. 2L crystalloid boluses were given. Few minutes later patient became profoundly hypotensive. Systolic blood pressure dropped to 60s, heart rate dropped to 30, patient received epinephrine 1 and atropine 1 amp. Following this patient was placed on Jorge-Synephrine infusion and epinephrine infusion at 2 mcg/m, critical care medicine was consulted. On my arrival patient was profoundly hypotensive, 2 D Echo was being done. RV appears dilated with low ejection fraction, LV ejection fraction was also down approximately 35-40%. Patient was in A. fib with RVR and had received 150 mg of IV amiodarone bolus. Patient also given 100 milligram of lidocaine for V. tach. He was receiving 2 units of blood. For a hemoglobin of 5.8. I ordered norepinephrine gtt and rapidly increased to 15 mcg/m to ensure adequate cardiac perfusion. Repeat echo showed improving LV and RV function, now on norepinephrine 15 mcg/m and epinephrine 2 mcg/m. By this time patient had received at least 4L, and 2U PRBC. Case extensively discussed with Dr. Jesus at the bedside. Will transfuse additional 2 units of blood and one pack unit of platelet Subjective 05/25: Extubated yesterday 1730. MAXIMUM TEMPERATURE 99.5. He is currently controlled. Currently 1 L cannula. Heart rate is currently normal sinus rhythm at 75 off all vasopressors. Objective Vital Signs Date Time Temp Pulse Resp B/P Pulse Ox O2 Delivery O2 Flow Rate FiO2 05/25/17 04:00 95 Nasal Cannula 2.00 05/25/17 03:00 79 05/25/17 03:00 99.5 18 127/78 137/66 05/24/17 16:00 45 Intake and Output 05/24/17 05/24/17 05/25/17 08:00 16:00 00:00 Intake Total 5514 ml Output Total 2800 ml Balance 2714 ml Result Diagram: 05/25/170 05/25/17 041 Imaging Last Impressions Chest X-Ray 05/25/17 0500 Signed Impressions: Service Date/Time: Thursday, May 25, 2017 03:54 - CONCLUSION: Pulmonary edema and slight left lung base consolidation. Questionable tiny left apical pneumothorax. Avery Zarate MD Objective Remarks GENERAL: A 71-year-old male, appears stated age resting in bed in no acute distress on 1 L nasal cannula SKIN: Warm and dry. No rash HEAD: Atraumatic. Normocephalic. EYES: Pupils equal round and reactive around 3 mm bilaterally and reactive. No injection or drainage. ENT: No septal hematoma. Nasal cannula and nares bilaterally. Oropharynx without erythema or exhibits. NECK: Trachea midline. No JVD or lymphadenopathy. CHEST: Midline CABG dressing intact. Mediastinal and left Chest tube with sanguinous output CARDIOVASCULAR: Pericardial rub heard clearly in all areas. RRR. S1, S2. No S4. RESPIRATORY: Few scattered crackles auscultated throughout all lung santoyo anterior and posterior. GASTROINTESTINAL: Abdomen soft, non-tender, nondistended. Active bowel sounds. NEUROLOGICAL: Cranial nerves II through XII grossly intact. Strength equal/and symmetric bilaterally. Normal sensation to light touch. A/P Assessment and Plan NEURO: Postop pain Scheduled Ofirmev 1 g IV every 6 hours 4 dosages Acetaminophen for fever - When necessary Percocet 5/325 one tablet every 3 hours for pain with fentanyl 25 mcg every hour when necessary. RESP: Postoperative respiratory failure resolved Pulmonary edema Nasal cannula to maintain saturations greater than equal to 92% currently on 1 L Incentive spirometry while awake On duo nebs every 6 hours/every 2 hours when necessary for dyspnea Chest x-ray this a.m. reveals pulmonary edema bilaterally. Being diuresed see below. Chest tubes - serosanguineous 1250 past 24 hours -20 cm H2O CV: Postop day #1 CABG 4 DAVE to LAD, SVG to D1, OM1 and PDA by Dr. Jesus Shock - cardiogenic plus/minus hypovolemic resolved Atrial fibrillation with RVR - currently normal sinus rhythm Nonsustained V. tach - status post lidocaine currently on amiodarone drip Coronary artery disease -Status post 4 L crystalloid/4 PRBCs and 1 pack platelets yesterday Currently off all vasopressors - Amiodarone 150 mg bolus and infusion per protocol Started on 400 mg by mouth twice a day to Dr. Byrne - Received lidocaine for V. tach. Discontinued. -2-D echo - EF 55-60%. Mildly decreased ventricular systolic function. Start on Lipitor 20 mg by mouth daily for dyslipidemia Start on Lasix 40 mg iv twice a day of potassium chloride 30 mEq twice a day for pericardial rub/pulmonary edema Art on aspirin 81 mg by mouth daily GI: GERD Advance diet as tolerated per CT surgery Protonix for GI prophylaxis. On Prilosec 20 mg by mouth daily at home. Colace 100 mg twice a day, Senokot 8.6 mg at night and MiraLAX 17 g daily for bowel regimen : BPH - Monitor renal function closely. Bravo catheter. Holding Rapaflo 8 mg by mouth daily. On Flomax 0.4 mill grams by mouth daily HEME: Acute blood loss anemia Thrombocytopenia Leukocytosis - Monitor CBC, CMP, coags - Receiving 4 units of blood and one pack units of platelets currently stable 15 ID: - Perioperative antibiotics with Ancef 1 g IV every 8 hours [address] surgery ENDO: - Electrolyte replacement per CV ICU protocol - IV insulin lash sliding scale insulin for tight euglycemic control PROPH: GI - Protonix DVT - pharmacological prophylaxis when okay with CT surgery Level II Mark Escalante MD May 25, 2017 08:29
[2017-05-25] MEDS: MULTIVITAMIN TAB PO SCH (09:00)
[2017-05-25] MEDS ORDERED: NON-FORMULARY DRUG (Omeprazole 20 MG) PO SCH (09:00)
[2017-05-25] MEDS: AMIODARONE 200 MG TAB PO SCH ×2 (09:16→19:58)
[2017-05-25] MEDS: FUROSEMIDE 40 MG/4 ML VIAL IV PUSH SCH ×2 (09:16→16:39)
[2017-05-25] MEDS: ASPIRIN 81 MG CHEW TAB PO SCH (09:16)
[2017-05-25] MEDS: POTASSIUM CHLORIDE 10 MEQ CONTROLLED RELEASE TAB PO SCH ×2 (09:16→19:59)
[2017-05-25] MEDS: DOCUSATE SODIUM 100 MG CAP PO SCH ×2 (09:17→19:59)
[2017-05-25] MEDS: TAMSULOSIN HCL 0.4 MG CAP PO SCH ×2 (09:17→13:13)
[2017-05-25] MEDS: MAGNESIUM HYDROXIDE SUSP 30 ML CUP PO SCH (09:17)
[2017-05-25] MEDS: MULTIVITAMINS/MINERALS THERAPEUTIC TAB PO SCH (09:17)
[2017-05-25] MEDS ORDERED: DEXTROSE 50% IN WATER 50 ML VIAL(D50) IV PUSH PRN (15:15)
[2017-05-25] MEDS: HIGH DOSE INSULIN NOVOLOG SUPPLEMENTAL SCALE SQ SCH ×2 (16:00→20:16)
[2017-05-25] MEDS: ATORVASTATIN 20 MG TAB PO SCH (19:59)
[2017-05-25] MEDS: SENNOSIDES 8.6 MG TAB PO SCH (19:59)
[2017-05-26] VITALS (14 sets, daily range): BP systolic 125–155; BP diastolic 81–94; PULSE 85–101; RESP 18–20; TEMP 98.4–98.7; O2SAT 95–97
[2017-05-26] MEDS: oxyCODONE/ACETAMINOPHEN 5 MG/325 MG TAB PO PRN ×3 (03:00→18:52)
[2017-05-26] MEDS: RESP: ALBUTEROL 2.5 MG/IPRATROPIUM 0.5 MG NEB (SCH) NEB ×4 (03:05→21:40)
[2017-05-26] MEDS: HIGH DOSE INSULIN NOVOLOG SUPPLEMENTAL SCALE SQ SCH ×6 (04:00→20:00)
[2017-05-26] MEDS: PANTOPRAZOLE SOD 40 MG DELAYED RELEASE TAB PO SCH (04:24)
[2017-05-26 04:51] LABS: BASOPHIL % 0.1 % (0.0-2.0); HEMATOCRIT 40.7 % (39.0-51.0); HEMO FLAGS DIFF FINAL; LYMPH % 5.1 % (9.0-44.0); LYMPHOCYTE # 0.6 TH/MM3 (1.0-4.8); MEAN CELL VOLUME 89.6 FL (80.0-100.0); MEAN CORPUSCULAR HEMOGLOBIN 30.7 PG (27.0-34.0); MEAN CORPUSCULAR HGB CONC 34.3 % (32.0-36.0); MONO % 6.8 % (0.0-8.0); PLATELET COUNT 124 TH/MM3 (150-450); RED BLOOD COUNT 4.54 MIL/MM3 (4.50-5.90); RED CELL DISTRIBUTION WIDTH 16.4 % (11.6-17.2); WHITE BLOOD COUNT 12.5 TH/MM3 (4.0-11.0)
[2017-05-26 05:13] LABS: BICARBONATE 33.1 MEQ/L (21.0-32.0); MAGNESIUM 2.1 MG/DL (1.5-2.5); POTASSIUM 4.5 MEQ/L (3.5-5.1)
[2017-05-26] MEDS: METOCLOPRAMIDE HCL 10 MG/2 ML VIAL IV PUSH SCH ×4 (06:22→21:23)
--- NOTE | 2017-05-26 07:04 | HHI.CCPN ---
Subjective Remarks/Hospital Course Patient is a 71-year-old male with past medical history significant for BPH, hypertension, dyslipidemia who was admitted for elective CABG. An outpatient stress test with Dr. Alegre was abnormal and patient underwent left heart cath which shows multivessel CAD. Apparently 2-D echo showed normal ejection fraction. Patient underwent CABG today by Dr. Jesus: CABG x 4, DAVE to LAD, SVG to D1, SVG to OM1 and SVG to PDA. Patient remained stable intraoperatively, but came to CV ICU from OR hypotensive, initially stabilized with Jorge- Synephrine pushes by anesthesia. 2L crystalloid boluses were given. Few minutes later patient became profoundly hypotensive. Systolic blood pressure dropped to 60s, heart rate dropped to 30, patient received epinephrine 1 and atropine 1 amp. Following this patient was placed on Jorge-Synephrine infusion and epinephrine infusion at 2 mcg/m, critical care medicine was consulted. On my arrival patient was profoundly hypotensive, 2 D Echo was being done. RV appears dilated with low ejection fraction, LV ejection fraction was also down approximately 35-40%. Patient was in A. fib with RVR and had received 150 mg of IV amiodarone bolus. Patient also given 100 milligram of lidocaine for V. tach. He was receiving 2 units of blood. For a hemoglobin of 5.8. I ordered norepinephrine gtt and rapidly increased to 15 mcg/m to ensure adequate cardiac perfusion. Repeat echo showed improving LV and RV function, now on norepinephrine 15 mcg/m and epinephrine 2 mcg/m. By this time patient had received at least 4L, and 2U PRBC. Case extensively discussed with Dr. Jesus at the bedside. Will transfuse additional 2 units of blood and one pack unit of platelet 05/25: Extubated yesterday 1730. MAXIMUM TEMPERATURE 99.5. He is currently controlled. Currently 1 L cannula. Heart rate is currently normal sinus rhythm at 75 off all vasopressors. Subjective: 05/26: Chest tube -570 cc serosanguineous past 24 hours. Bravo has been removed. Resting comfortably in chair in no acute distress. Complains of difficulty swallowing. Worried about dehydration with diuretics been provided since that has been an issue with him in the past.. Objective Vital Signs Date Time Temp Pulse Resp B/P Pulse Ox O2 Delivery O2 Flow Rate FiO2 05/26/17 04:00 95 Nasal Cannula 2.00 05/26/17 04:00 98.4 91 20 138/81 05/24/17 16:00 45 Intake and Output 05/25/17 05/25/17 05/26/17 08:00 16:00 00:00 Intake Total 1227 ml 1860 ml Output Total 2600 ml 1915 ml Balance -1373 ml -55 ml Result Diagram: 05/26/17 0425 05/26/17 0425 Imaging Last Impressions Chest X-Ray 05/25/17 0500 Signed Impressions: Service Date/Time: Thursday, May 25, 2017 03:54 - CONCLUSION: Pulmonary edema and slight left lung base consolidation. Questionable tiny left apical pneumothorax. Avery Zarate MD Objective Remarks GENERAL: A 71-year-old male, appears stated age resting in bed in no acute distress SKIN: Warm and dry. No rash HEAD: Atraumatic. Normocephalic. EYES: Pupils equal round and reactive around 3 mm bilaterally and reactive. No injection or drainage. ENT: No septal hematoma. Nasal cannula and nares bilaterally. Oropharynx without erythema or exhibits. NECK: Trachea midline. No JVD or lymphadenopathy. CHEST: Midline CABG dressing intact. Mediastinal and left Chest tube with sanguinous output CARDIOVASCULAR: Pericardial rub heard left sternal border only. RRR. S1, S2. No S4. RESPIRATORY: Few scattered crackles auscultated throughout all lung santoyo anterior and posterior. GASTROINTESTINAL: Abdomen soft, non-tender, nondistended. Active bowel sounds. NEUROLOGICAL: Cranial nerves II through XII grossly intact. Strength equal/and symmetric bilaterally. Normal sensation to light touch. A/P Assessment and Plan NEURO: Postop pain Scheduled Ofirmev 1 g IV every 6 hours 4 dosages has been completed Acetaminophen for fever - When necessary Percocet 5/325 one tablet every 3 hours for pain with fentanyl 25 mcg every hour when necessary. RESP: Postoperative respiratory failure resolved Pulmonary edema Nasal cannula to maintain saturations greater than equal to 92% Incentive spirometry while awake On duo nebs every 6 hours/every 2 hours when necessary for dyspnea Chest x-ray this a.m. reveals pulmonary edema bilaterally. Being diuresed see below. Chest tubes - serosanguineous 570 past 24 hours -20 cm H2O CV: Postop day #2 CABG 4 DAVE to LAD, SVG to D1, OM1 and PDA by Dr. Jesus Shock - cardiogenic plus/minus hypovolemic resolved Atrial fibrillation with RVR - currently normal sinus rhythm Nonsustained V. tach - status post lidocaine currently on amiodarone drip Coronary artery disease -Status post 4 L crystalloid/4 PRBCs and 1 pack platelets yesterday Currently off all vasopressors - Amiodarone 150 mg bolus and infusion per protocol discontinued yesterday Started on 400 mg by mouth twice a day to Dr. Byrne - Received lidocaine for V. tach. Discontinued. -2-D echo - EF 55-60%. Mildly decreased ventricular systolic function. Start on Lipitor 20 mg by mouth daily for dyslipidemia Start on Lasix 40 mg iv twice a day of potassium chloride 30 mEq twice a day for pericardial rub/pulmonary edema Art on aspirin 81 mg by mouth daily GI: GERD Advance diet as tolerated per CT surgery Protonix for GI prophylaxis. On Prilosec 20 mg by mouth daily at home. Colace 100 mg twice a day, Senokot 8.6 mg at night and MiraLAX 17 g daily for bowel regimen : BPH - Monitor renal function closely. Bravo catheter. Holding Rapaflo 8 mg by mouth daily. On Flomax 0.4 mill grams by mouth daily HEME: Acute blood loss anemia - resolved Thrombocytopenia Leukocytosis - Monitor CBC, CMP, coags - Received 4 units of blood and one pack units of platelets currently stable 15 ID: - Perioperative antibiotics with Ancef 1 g IV every 8 hours [address] surgery has been completed ENDO/FEN: Hyponatremia - Electrolyte replacement per CV ICU protocol - IV insulin lash sliding scale insulin for tight euglycemic control PROPH: GI - Protonix DVT - pharmacological prophylaxis when okay with CT surgery Level II Mark Escalante MD May 26, 2017 07:03
[2017-05-26] MEDS: CHLORHEXIDINE 0.12% (ORAL KIT) 15 ML CUP MT SCH ×2 (07:57→20:00)
[2017-05-26] MEDS: TAMSULOSIN HCL 0.4 MG CAP PO SCH (08:58)
[2017-05-26] MEDS: FUROSEMIDE 40 MG/4 ML VIAL IV PUSH SCH (08:58)
[2017-05-26] MEDS: AMIODARONE 200 MG TAB PO SCH ×2 (08:58→21:22)
[2017-05-26] MEDS: MULTIVITAMINS/MINERALS THERAPEUTIC TAB PO SCH (08:58)
[2017-05-26] MEDS: MAGNESIUM HYDROXIDE SUSP 30 ML CUP PO SCH (08:58)
[2017-05-26] MEDS: ASPIRIN 81 MG CHEW TAB PO SCH (08:58)
[2017-05-26] MEDS: DOCUSATE SODIUM 100 MG CAP PO SCH ×2 (08:58→21:22)
[2017-05-26] MEDS: POLYETHYLENE GLYCOL 17 GM PKG PO SCH (08:59)
[2017-05-26] MEDS: MULTIVITAMIN TAB PO SCH (08:59)
[2017-05-26] MEDS: POTASSIUM CHLORIDE 10 MEQ CONTROLLED RELEASE TAB PO SCH ×2 (08:59→22:32)
--- NOTE | 2017-05-26 10:53 | PD.CAR.PN ---
CVT Progress Note CVT: POD #: 2 Subjective/Hospital Course: Had an episode of hemodynamic instability and profound anemia which responded to inotropic support and transfusion. No residual issues this morning. 05/26/17 No complaints. Doing well Objective: Vital Signs Date Time Temp Pulse Resp B/P Pulse Ox O2 Delivery O2 Flow Rate FiO2 05/26/17 09:52 18 05/26/17 09:40 95 Nasal Cannula 2.00 05/26/17 08:02 95 Nasal Cannula 2.00 05/26/17 07:41 98.6 89 20 155/94 95 05/26/17 07:37 89 05/26/17 04:00 95 Nasal Cannula 2.00 05/26/17 04:00 98.4 91 20 138/81 95 05/26/17 03:00 91 05/26/17 00:00 96 Nasal Cannula 2.00 05/25/17 23:30 85 05/25/17 23:30 98.4 85 18 112/65 96 05/25/17 23:00 85 05/25/17 20:34 95 Nasal Cannula 2.00 05/25/17 20:00 97 Nasal Cannula 2.00 05/25/17 20:00 81 05/25/17 20:00 98.4 86 20 126/76 96 05/25/17 16:00 96 Nasal Cannula 2.00 05/25/17 15:00 73 05/25/17 15:00 98.9 73 16 112/64 96 05/25/17 15:00 74 05/25/17 12:00 96 Nasal Cannula 2.00 05/25/17 11:17 93 Nasal Cannula 2.00 05/25/17 11:00 98.7 74 17 137/77 96 Arterial Line 05/25/17 11:00 77 Labs: Laboratory Tests Test 05/26/17 04:25 White Blood Count 12.5 TH/MM3 (4.0-11.0) Red Blood Count 4.54 MIL/MM3 (4.50-5.90) Hemoglobin 13.9 GM/DL (13.0-17.0) Hematocrit 40.7 % (39.0-51.0) Mean Corpuscular Volume 89.6 FL (80.0-100.0) Mean Corpuscular Hemoglobin 30.7 PG (27.0-34.0) Mean Corpuscular Hemoglobin 34.3 % Concent (32.0-36.0) Red Cell Distribution Width 16.4 % (11.6-17.2) Platelet Count 124 TH/MM3 (150-450) Mean Platelet Volume 8.2 FL (7.0-11.0) Neutrophils (%) (Auto) 88.0 % (16.0-70.0) Lymphocytes (%) (Auto) 5.1 % (9.0-44.0) Monocytes (%) (Auto) 6.8 % (0.0-8.0) Eosinophils (%) (Auto) 0.0 % (0.0-4.0) Basophils (%) (Auto) 0.1 % (0.0-2.0) Neutrophils # (Auto) 11.0 TH/MM3 (1.8-7.7) Lymphocytes # (Auto) 0.6 TH/MM3 (1.0-4.8) Monocytes # (Auto) 0.9 TH/MM3 (0-0.9) Eosinophils # (Auto) 0.0 TH/MM3 (0-0.4) Basophils # (Auto) 0.0 TH/MM3 (0-0.2) CBC Comment DIFF FINAL Differential Comment Sodium Level 135 MEQ/L (136-145) Potassium Level 4.5 MEQ/L (3.5-5.1) Chloride Level 97 MEQ/L (98-107) Carbon Dioxide Level 33.1 MEQ/L (21.0-32.0) Anion Gap 5 MEQ/L (5-15) Blood Urea Nitrogen 16 MG/DL (7-18) Creatinine 1.02 MG/DL (0.60-1.30) Estimat Glomerular Filtration 72 ML/MIN (>89) Rate Random Glucose 120 MG/DL (74-106) Calcium Level 8.4 MG/DL (8.5-10.1) Magnesium Level 2.1 MG/DL (1.5-2.5) Result Diagram: 05/26/1742405/26/17424 Cardiovascular: RRR Telemetry: NSR Pulmonary: CTA GI/: NABS, NT Incision: dry and intact CT: 170ml/12 hrs Plan: STIM BM Continue chest tubes to water seal Encourage ambulation, PO intake beta valeria Sherry Nagel MD May 26, 2017 10:53
[2017-05-26] MEDS: METOPROLOL TARTRATE 25 MG TAB PO SCH ×2 (11:48→21:22)
[2017-05-26] MEDS: SENNOSIDES 8.6 MG TAB PO SCH (21:22)
[2017-05-26] MEDS: ATORVASTATIN 20 MG TAB PO SCH (21:22)
[2017-05-27] VITALS (32 sets, daily range): BP systolic 125–180; BP diastolic 66–106; PULSE 79–112; RESP 16–18; TEMP 98.1–98.7; O2SAT 94–98
[2017-05-27] MEDS: ACETAMINOPHEN 325 MG TAB PO PRN ×2 (00:22→20:39)
[2017-05-27] MEDS: METOPROLOL TARTRATE 5 MG/5 ML VIAL IV PUSH PRN ×3 (00:22→23:22)
[2017-05-27] MEDS ORDERED: hydrALAZINE HCL 20 MG/ML VIAL IV ONE (02:45)
[2017-05-27] MEDS: LISINOPRIL 10 MG TAB PO SCH ×2 (02:59→07:50)
[2017-05-27] MEDS: oxyCODONE/ACETAMINOPHEN 5 MG/325 MG TAB PO PRN ×3 (04:40→11:44)
[2017-05-27] MEDS: RESP: ALBUTEROL 2.5 MG/IPRATROPIUM 0.5 MG NEB (SCH) NEB ×4 (04:59→20:02)
[2017-05-27] MEDS: HIGH DOSE INSULIN NOVOLOG SUPPLEMENTAL SCALE SQ SCH ×5 (05:42→20:30)
[2017-05-27] MEDS: METOCLOPRAMIDE HCL 10 MG/2 ML VIAL IV PUSH SCH ×4 (05:56→20:39)
[2017-05-27] MEDS: PANTOPRAZOLE SOD 40 MG DELAYED RELEASE TAB PO SCH (05:56)
[2017-05-27] MEDS: DOCUSATE SODIUM 100 MG CAP PO SCH ×2 (07:48→20:31)
[2017-05-27] MEDS: MAGNESIUM HYDROXIDE SUSP 30 ML CUP PO SCH (07:48)
[2017-05-27] MEDS: POLYETHYLENE GLYCOL 17 GM PKG PO SCH (07:48)
[2017-05-27] MEDS: TAMSULOSIN HCL 0.4 MG CAP PO SCH (07:49)
[2017-05-27] MEDS: METOPROLOL TARTRATE 25 MG TAB PO SCH ×2 (07:49→20:38)
[2017-05-27] MEDS: MULTIVITAMIN TAB PO SCH (07:49)
[2017-05-27] MEDS: MULTIVITAMINS/MINERALS THERAPEUTIC TAB PO SCH (07:49)
[2017-05-27] MEDS: ASPIRIN 81 MG CHEW TAB PO SCH (07:49)
[2017-05-27] MEDS: POTASSIUM CHLORIDE 10 MEQ CONTROLLED RELEASE TAB PO SCH ×2 (07:50→20:39)
[2017-05-27] MEDS: AMIODARONE 200 MG TAB PO SCH ×2 (07:50→20:39)
[2017-05-27] MEDS: CHLORHEXIDINE 0.12% (ORAL KIT) 15 ML CUP MT SCH ×2 (07:53→20:00)
--- NOTE | 2017-05-27 11:57 | PD.CAR.PN ---
CVT Progress Note CVT: POD #: 3 Subjective/Hospital Course: Had an episode of hemodynamic instability and profound anemia which responded to inotropic support and transfusion. No residual issues this morning. 05/26/17 No complaints. Doing well 05/27/17 c/o nausea +BM Objective: Vital Signs Date Time Temp Pulse Resp B/P Pulse Ox O2 Delivery O2 Flow Rate FiO2 05/27/17 10:14 89 05/27/17 09:42 92 05/27/17 09:08 94 05/27/17 09:06 18 05/27/17 08:15 96 05/27/17 08:15 96 Nasal Cannula 2.00 05/27/17 08:15 98.7 102 18 134/73 96 05/27/17 06:00 96 05/27/17 05:02 95 Nasal Cannula 2.00 05/27/17 05:00 94 05/27/17 04:00 92 05/27/17 03:30 151/83 05/27/17 03:01 98.3 86 16 180/106 96 05/27/17 03:00 96 Nasal Cannula 2.00 05/27/17 03:00 93 05/27/17 02:11 171/92 05/27/17 02:00 79 05/27/17 01:34 160/85 05/27/17 01:00 80 05/27/17 00:00 98.1 89 16 167/97 97 05/27/17 00:00 88 05/26/17 23:20 97 Nasal Cannula 2.00 05/26/17 23:00 85 05/26/17 22:34 146/93 05/26/17 22:00 86 05/26/17 21:40 Nasal Cannula 2.00 05/26/17 21:00 100 05/26/17 20:00 96 05/26/17 19:50 96 Nasal Cannula 2.00 05/26/17 19:00 101 05/26/17 16:57 97 Nasal Cannula 2.00 05/26/17 15:04 98.7 93 18 155/85 97 05/26/17 15:03 93 05/26/17 12:04 97 Nasal Cannula 2.00 Result Diagram: 05/26/17 0425 05/26/17424 Cardiovascular: RRR Telemetry: NSR Pulmonary: CTA GI/: NABS, NT Incision: dry and intact CT: ~70ml/12 hrs Plan: D/C chest tubes Encourage ambulation Diurese Plan d/c tomorrow Sherry Byrne MD May 27, 2017 11:56
[2017-05-27] MEDS: SENNOSIDES 8.6 MG TAB PO SCH (20:31)
[2017-05-27] MEDS: ATORVASTATIN 20 MG TAB PO SCH (20:38)
[2017-05-28] VITALS (21 sets, daily range): BP systolic 149–180; BP diastolic 75–97; PULSE 90–120; RESP 16–20; TEMP 98.2–98.3; O2SAT 94–98
[2017-05-28] MEDS: RESP: ALBUTEROL 2.5 MG/IPRATROPIUM 0.5 MG NEB (SCH) NEB ×3 (03:45→15:24)
[2017-05-28] MEDS: PANTOPRAZOLE SOD 40 MG DELAYED RELEASE TAB PO SCH (06:00)
[2017-05-28] MEDS: METOCLOPRAMIDE HCL 10 MG/2 ML VIAL IV PUSH SCH (06:21)
[2017-05-28] MEDS: HIGH DOSE INSULIN NOVOLOG SUPPLEMENTAL SCALE SQ SCH (06:24)
[2017-05-28] MEDS: METOPROLOL TARTRATE 25 MG TAB PO SCH (06:50)
[2017-05-28] MEDS ORDERED: FUROSEMIDE 40 MG/4 ML VIAL IV PUSH ONE (08:15)
[2017-05-28] MEDS: MAGNESIUM HYDROXIDE SUSP 30 ML CUP PO SCH (09:00)
[2017-05-28] MEDS: DOCUSATE SODIUM 100 MG CAP PO SCH (09:00)
[2017-05-28] MEDS: POLYETHYLENE GLYCOL 17 GM PKG PO SCH (09:00)
[2017-05-28] MEDS ORDERED: METOPROLOL TARTRATE 25 MG TAB PO SCH (09:00)
[2017-05-28] MEDS ORDERED: POTASSIUM CHLORIDE 10 MEQ CONTROLLED RELEASE TAB PO SCH (09:00)
[2017-05-28] MEDS: ASPIRIN 81 MG CHEW TAB PO SCH (09:14)
[2017-05-28] MEDS: LISINOPRIL 10 MG TAB PO SCH (09:14)
[2017-05-28] MEDS: AMIODARONE 200 MG TAB PO SCH (09:15)
[2017-05-28] MEDS: TAMSULOSIN HCL 0.4 MG CAP PO SCH (09:15)
[2017-05-28] MEDS: MULTIVITAMINS/MINERALS THERAPEUTIC TAB PO SCH (09:17)
--- NOTE | 2017-05-28 09:55 | RADRPT ---
EXAM DATE/TIME: 05/28/2017 08:22 [place] COMPARISON: CHEST SINGLE AP, May 25, 2017, 3:54. INDICATIONS : Status post CABG chest tube removal. MEDICAL HISTORY : Benign prostatic hyperplasia, (BPH) Hypothyroidism. Gastroesophageal reflux disease. Coronary artery disease. Hypertension. Glaucoma. Hiatal hernia. Skin cancer. SURGICAL HISTORY : CABG. Cardiac catheterization. ENCOUNTER: Subsequent ACUITY: 1 day PAIN SCORE: 0/10 LOCATION: Chest FINDINGS: Chest tube has been removed on the left with a trace pneumothorax. There is minimal blunting of left costophrenic sulcus. Mediastinum appears appropriate. There is a small 1.4 cm pneumothorax on the right, the side without the chest tube. This was not pre sent on 05/25/17. CONCLUSION: 1. Trace pneumothorax on the left. 2. Small new pneumothorax on the right. Elliott Estrada MD FACR on May 28, 2017 at 9:03 Board Certified Radiologist. This report was verified electronically.
[2017-05-28] MEDS ORDERED: METOPROLOL TARTRATE 25 MG TAB PO ONE (10:15)
[2017-05-28] MEDS ORDERED: LISI10TA3 PO (10:27)
[2017-05-28] MEDS ORDERED: DOCU1CAP39 PO (10:27)
[2017-05-28] MEDS ORDERED: ATOR20TA15 PO (10:27)
[2017-05-28] MEDS ORDERED: AMIO200T PO (10:27)
[2017-05-28] MEDS ORDERED: ASPI81CH25 PO (10:27)
[2017-05-28] MEDS ORDERED: NORC5TAB PO (10:28)
[2017-05-28] MEDS ORDERED: THERM PO (10:28)
[2017-05-28] MEDS ORDERED: METO25TA3 PO (10:28)
--- NOTE | 2017-05-28 10:31 | HHI.FF ---
Face to Face Verification Diagnosis: (1) CAD (coronary artery disease) (2) Anginal equivalent (3) S/P CABG x 4 Home Health Nursing Order: Signs/symptoms of disease process Wound care and dressing changes Nursing assessment with vital signs Instructions: Heart and Vascular Surgery patients *Special attention to sternal dressing Mandatory frequency Assess and evaluation, 4 days in a row The next week 3X week 2 times a week for 4 weeks 1 time a week for 5 weeks Schedule Heart and Vascular patients for full 60 day certification period Initial visit Review Open Heart Surgery Discharge Instructions (Sternal precautions, Activity, Elastic hose, Incision care, Driving, Incentive spirometry, Smoking, [place], Work and other) Need Betadine to paint incision Medication reconciliation Importance of follow up care/ check on appointments Make calendar record temperature daily When to call [facility] at Home nurse, review instructions, phone list Incentive Spirometry, demonstration Visit 1- Begin discharge instruction for patient family and/ or caregiver using teach back method- Signs and symptoms of infection Disease characteristics Medicines and side effects Foods and nutrition/ appetite Infection control/ hand washing/ hygiene Visit 2- Continue teaching Discharge instructions- include additional information on smoking cessation , sternal dressing (sternal vac) Visit 3- Continue teaching- Cough and deep breathing, incision monitoring. Choose my plate Visit 4- Continue teaching- Discuss limitations Discuss how they are feeling Discuss progress toward goals Remaining visits- continue teaching and monitoring Incentive spirometry Q1 hr x 10, while awake, also use acapella device hourly whole awake Sternal Breast Bone Precautions: NO pushing or pulling, ( pt must use sternal pillow to support chest with all activities and with coughing ( takes up to 3 months breast bone to heal ) Daily incision care: ok to shower daily, no tub bath. Wash all incisions with liquid dial soap, clean wash cloth to each site, rinse and pat dry. Observe for any signs of infection, such as drainage which is dark yellow, [place], green or foul smelling. Immediately report to the surgeon any drainage from the chest incision, or legs, and for any abnormal drainage from the chest tube sites. Notify surgeon if any temp >101.5 degrees F. When specialty dressing removed/ or if you do not have one, continue to shower daily as above, then rinse and pat incision dry and paint with betadine daily x 5 days. Allow steri strips to fall off if you have any. Avoid lotions, creams, salves, oils, etc. for the first month For Dr. Byrne patients , please obtain CBC, BMP, PA & Lat CXR in 2 weeks, results to Dr. Byrne ( prescription will be given) ( ) (Tele: [phone]) , F/U appointment: as per DC instructions: PCP in 2 weeks, CV surgeon 2 weeks, Philosophy Professor 3-4 weeks, urologist one week For any questions regarding incisions/ dressing / meds / post op care or above Symptoms, Sunday 8am-5pm Heart & Vascular Surgery Office ( Dr. Denson & Dr. Byrne), After Hours / Nights (5pm -8am) Weekends and Holidays Please call [facility] Cardiac Intermediate Care Unit (CIC) Charge Nurse I have seen patient Raul Lee on 05/28/17. My clinical findings support the need for the requested home health care services because: Deconditioned w/ increased weakness I certify that my clinical findings support that this patient is homebound because: Post-op weakness Liliana Gotti May 28, 2017 10:31
--- NOTE | 2017-05-28 10:39 | HHI.DS ---
Discharge Summary Admission Date May 24, 2017 at 05:20 Discharge Date: May 28, 2017 Admitting Diagnosis chest pain , CAD (1) CAD (coronary artery disease) Diagnosis: Principal (2) Anginal equivalent Diagnosis: Principal (3) Urinary retention Diagnosis: Principal (4) S/P CABG x 4 Diagnosis: Secondary Procedures CABG x 4 05/24 DAVE to LAD SVG to D1 - good SVG to OM1 - good SVG to PDA - good EVH (both legs) Brief History Patient is a 71-year-old male with past medical history significant for BPH, hypertension, dyslipidemia who was admitted for elective CABG. An outpatient stress test with Dr. Alegre was abnormal and patient underwent left heart cath which shows multivessel CAD. Apparently 2-D echo showed normal ejection fraction. Patient underwent CABG today by Dr. Jesus: CABG x 4, DAVE to LAD, SVG to D1, SVG to OM1 and SVG to PDA 05/24 CBC/BMP: 05/26/17 0425 05/26/17 0425 Significant Findings Laboratory Tests Test 05/26/17 04:25 White Blood Count 12.5 TH/MM3 (4.0-11.0) Platelet Count 124 TH/MM3 (150-450) Neutrophils (%) (Auto) 88.0 % (16.0-70.0) Lymphocytes (%) (Auto) 5.1 % (9.0-44.0) Neutrophils # (Auto) 11.0 TH/MM3 (1.8-7.7) Lymphocytes # (Auto) 0.6 TH/MM3 (1.0-4.8) Sodium Level 135 MEQ/L (136-145) Chloride Level 97 MEQ/L (98-107) Carbon Dioxide Level 33.1 MEQ/L (21.0-32.0) Estimat Glomerular Filtration 72 ML/MIN (>89) Rate Random Glucose 120 MG/DL (74-106) Calcium Level 8.4 MG/DL (8.5-10.1) Imaging Last Impressions Chest X-Ray 05/25/17 0500 Signed Impressions: Service Date/Time: Thursday, May 25, 2017 03:54 - CONCLUSION: Pulmonary edema and slight left lung base consolidation. Questionable tiny left apical pneumothorax. Avery Zarate MD PE at Discharge GENERAL: SKIN: Warm and dry.sternal incision intact and well approximated, incisions to both legs intact, and well approximated HEAD: Normocephalic. EYES: No scleral icterus. No injection or drainage. NECK: Supple, trachea midline. No JVD or lymphadenopathy. CARDIOVASCULAR: Regular rate and rhythm without murmurs, gallops, or rubs. RESPIRATORY: Breath sounds equal bilaterally. No accessory muscle use. slightly diminished in bases GASTROINTESTINAL: Abdomen soft, non-tender, nondistended. MUSCULOSKELETAL: No cyanosis, or edema. BACK: Nontender without obvious deformity. No CVA tenderness. Hospital Course Patient is a 71-year-old male with past medical history significant for BPH, hypertension, dyslipidemia who was admitted for elective CABG. An outpatient stress test with Dr. Alegre was abnormal and patient underwent left heart cath which shows multivessel CAD. Apparently 2-D echo showed normal ejection fraction. Patient underwent CABG today by Dr. Jesus: CABG x 4, DAVE to LAD, SVG to D1, SVG to OM1 and SVG to PDA 05/24 . Patient remained stable intraoperatively, but came to CV ICU from OR hypotensive, initially stabilized with Jorge-Synephrine pushes by anesthesia. 2L crystalloid boluses were given. Few minutes later patient became profoundly hypotensive. Systolic blood pressure dropped to 60s, heart rate dropped to 30, patient received epinephrine 1 and atropine 1 amp. Following this patient was placed on Jorge-Synephrine infusion and epinephrine infusion at 2 mcg/m, critical care medicine was consulted. On my arrival patient was profoundly hypotensive, 2 D Echo was being done. RV appears dilated with low ejection fraction, LV ejection fraction was also down approximately 35-40%. Patient was in A. fib with RVR and had received 150 mg of IV amiodarone bolus. Patient also given 100 milligram of lidocaine for V. tach. He was receiving 2 units of blood. For a hemoglobin of 5.8. I ordered norepinephrine gtt and rapidly increased to 15 mcg/m to ensure adequate cardiac perfusion. Repeat echo showed improving LV and RV function, now on norepinephrine 15 mcg/m and epinephrine 2 mcg/m. By this time patient had received at least 4L, and 2U PRBC. pt improved over the postop course was weaned off all pressors and transferred to stepdown, did receive total 4 units of PRBC postop on room air , BP stable pt has hx of urinary retention , had packer cath replaced x 3, consult placed for Urology, Dr Ontiveros/ known to him will dc pt home after seen by above, and dc with leg bag Pt Condition on Discharge: Good Discharge Disposition: Disch w/ Home Health Serv Discharge Instructions DIET: Follow Instructions for: Heart Healthy Diet Activities you can perform: Shower Only-No Bath Activities to avoid: Strenuous Activity, Driving Additional Activity Instructio: no lifting > *lbs or gallon of milk use packer leg bag during the day and packer bag at night Follow up Referrals: Appointment for Follow Up Cardiology PCP Follow-up New Medications: Hydrocodone-Acetaminophen ([place]) 5-325 mg Tab 1 TAB PO Q4H PRN PAIN #40 Ref 0 TAB Amiodarone (Amiodarone) 200 Mg Tab 400 MG PO Q12HR 400mg po bid x 3 days, then 200mg po bid x 3 days, then 200mg daily heart rhythm #45 Ref 0 TAB Aspirin (Aspirin Low Strength) 81 Mg Chew 81 MG PO DAILY Blood Clot Prevention #100 Ref 2 EA Atorvastatin (Atorvastatin) 20 Mg Tab 20 MG PO HS Cholesterol Management #30 Ref 2 TAB Docusate Sodium (Dok) 100 Mg Cap 100 MG PO BID Constipation #60 Ref 0 CAP Lisinopril (Lisinopril) 10 Mg Tab 10 MG PO DAILY Blood Pressure Management #30 Ref 2 TAB Metoprolol Tartrate (Metoprolol Tartrate) 25 Mg Tab 50 MG PO Q12HR Blood Pressure Management #60 Ref 2 TAB Multiple Vitamins W/ Minerals (Thera M Plus) 1 Tab 1 TAB PO DAILY multi vitamin #30 Ref 2 TAB Continued Medications: Multiple Vitamin (Multi-Vitamin Daily) 1 Tab Tab 1 TAB PO DAILY Nutritional Supplement Ref 0 TAB Omeprazole (Omeprazole) 20 Mg Tab 20 MG PO DAILY #30 Ref 0 TAB Silodosin (Rapaflo) 8 Mg Cap 8 MG PO DAILY Manage Prostate Problems #30 Ref 0 CAP Discontinued Medications: Acetaminophen (Tylenol) 325 Mg Tab 325 MG PO ONCE #1 Ref 0 TAB Liliana Gotti May 28, 2017 10:39
--- NOTE | 2017-05-28 10:43 | HHI.DS ---
Discharge Summary Admission Date May 24, 2017 at 05:20 Admitting Diagnosis (1) CAD (coronary artery disease) Diagnosis: Principal (2) Anginal equivalent Diagnosis: Principal (3) Urinary retention Diagnosis: Principal (4) S/P CABG x 4 Diagnosis: Secondary Procedures CABG x 4 05/24 DAVE to LAD SVG to D1 - good SVG to OM1 - good SVG to PDA - good EVH (both legs) Brief History Patient is a 71-year-old male with past medical history significant for BPH, hypertension, dyslipidemia who was admitted for elective CABG. An outpatient stress test with Dr. Alegre was abnormal and patient underwent left heart cath which shows multivessel CAD. Apparently 2-D echo showed normal ejection fraction. Patient underwent CABG today by Dr. Jesus: CABG x 4, DAVE to LAD, SVG to D1, SVG to OM1 and SVG to PDA 05/24 CBC/BMP: 05/26/17 0425 05/26/17 0425 Significant Findings Laboratory Tests Test 05/26/17 04:25 White Blood Count 12.5 TH/MM3 (4.0-11.0) Platelet Count 124 TH/MM3 (150-450) Neutrophils (%) (Auto) 88.0 % (16.0-70.0) Lymphocytes (%) (Auto) 5.1 % (9.0-44.0) Neutrophils # (Auto) 11.0 TH/MM3 (1.8-7.7) Lymphocytes # (Auto) 0.6 TH/MM3 (1.0-4.8) Sodium Level 135 MEQ/L (136-145) Chloride Level 97 MEQ/L (98-107) Carbon Dioxide Level 33.1 MEQ/L (21.0-32.0) Estimat Glomerular Filtration 72 ML/MIN (>89) Rate Random Glucose 120 MG/DL (74-106) Calcium Level 8.4 MG/DL (8.5-10.1) PE at Discharge GENERAL: SKIN: Warm and dry.sternal incision intact and well approximated, incisions to both legs intact, and well approximated HEAD: Normocephalic. EYES: No scleral icterus. No injection or drainage. NECK: Supple, trachea midline. No JVD or lymphadenopathy. CARDIOVASCULAR: Regular rate and rhythm without murmurs, gallops, or rubs. RESPIRATORY: Breath sounds equal bilaterally. No accessory muscle use. slightly diminished in bases GASTROINTESTINAL: Abdomen soft, non-tender, nondistended. MUSCULOSKELETAL: No cyanosis, or edema. BACK: Nontender without obvious deformity. No CVA tenderness. Pt Condition on Discharge: Good Discharge Disposition: Disch w/ Home Health Serv Discharge Instructions DIET: Follow Instructions for: Heart Healthy Diet Activities you can perform: Shower Only-No Bath Activities to avoid: Strenuous Activity, Driving Additional Activity Instructio: no lifting > *lbs or gallon of milk use packer leg bag during the day and packer bag at night Follow up Referrals: Appointment for Follow Up Cardiology PCP Follow-up Urology - 1 Week with Juan Ontiveros MD New Orders: BASIC METABOLIC PROF - 2 Weeks CBC NO DIFF - 2 Weeks X-RAY CHEST PA & LAT - 2 Weeks New Medications: Hydrocodone-Acetaminophen ([place]) 5-325 mg Tab 1 TAB PO Q4H PRN PAIN #40 Ref 0 TAB Amiodarone (Amiodarone) 200 Mg Tab 400 MG PO Q12HR 400mg po bid x 3 days, then 200mg po bid x 3 days, then 200mg daily heart rhythm #45 Ref 0 TAB Aspirin (Aspirin Low Strength) 81 Mg Chew 81 MG PO DAILY Blood Clot Prevention #100 Ref 2 EA Atorvastatin (Atorvastatin) 20 Mg Tab 20 MG PO HS Cholesterol Management #30 Ref 2 TAB Docusate Sodium (Dok) 100 Mg Cap 100 MG PO BID Constipation #60 Ref 0 CAP Lisinopril (Lisinopril) 10 Mg Tab 10 MG PO DAILY Blood Pressure Management #30 Ref 2 TAB Metoprolol Tartrate (Metoprolol Tartrate) 25 Mg Tab 50 MG PO Q12HR Blood Pressure Management #60 Ref 2 TAB Multiple Vitamins W/ Minerals (Thera M Plus) 1 Tab 1 TAB PO DAILY multi vitamin #30 Ref 2 TAB Continued Medications: Multiple Vitamin (Multi-Vitamin Daily) 1 Tab Tab 1 TAB PO DAILY Nutritional Supplement Ref 0 TAB Omeprazole (Omeprazole) 20 Mg Tab 20 MG PO DAILY #30 Ref 0 TAB Silodosin (Rapaflo) 8 Mg Cap 8 MG PO DAILY Manage Prostate Problems #30 Ref 0 CAP Discontinued Medications: Acetaminophen (Tylenol) 325 Mg Tab 325 MG PO ONCE #1 Ref 0 TAB Liliana Gotti May 28, 2017 10:43
[2017-05-28 10:59] LABS: BICARBONATE 29.1 MEQ/L (21.0-32.0); MAGNESIUM 2.1 MG/DL (1.5-2.5); POTASSIUM 4.3 MEQ/L (3.5-5.1)
[2017-05-28 12:44] LABS: BLOOD, URINE MOD (NEG); GLUCOSE,URINE NEG (NEG); HYALINE CAST, URINE 1 /lpf (RARE); KETONE, URINE 10 mg/dL (NEG); MUCUS URINE FEW /lpf (OCC); NITRITE,URINE NEG (NEG); PH, URINE 6.5 (5.0-8.5); URINE COLOR LIGHT-YELLOW (YELLW/STRAW)
[2017-05-28 12:45] LABS: COMMENT (UR) CATH-CULT NOT IND; CULTURE IF INDICATED CATH CULTURE NOT IND
--- NOTE | 2017-05-28 12:59 | PD.CONS ---
HPI Service Urology Consult Requested By Primary Care Physician Unknown Diagnosis: (1) CAD (coronary artery disease) ICD Code: I25.10 (2) Anginal equivalent ICD Code: I20.8 (3) Urinary retention ICD Code: R33.9 (4) S/P CABG x 4 ICD Code: Z95.1 History of Present Illness 71-year-old male who underwent CABG 4 with postop urinary retention. Patient with a known history of BPH with obstruction with nocturia 2-3 times at night a moderate stream. He is currently followed by Dr. Ray [facility]. He currently takes Rapaflo 8 mg by mouth daily at bedtime. He states he did have an episode of urinary retention requiring an indwelling Bravo catheter after colonoscopy last fall. Apparently, the catheter has been replaced 2 or 3 times during this admission for urinary retention. He is scheduled at home today. Review of Systems Endocrine: DENIES: Heat/cold intolerance Eyes: DENIES: Blurred vision Ears, nose, mouth, throat: DENIES: Tinnitus Respiratory: DENIES: Apneas Cardiovascular: COMPLAINS OF: Chest pain (recent CABG) Gastrointestinal: DENIES: Abdominal pain Musculoskeletal: DENIES: Joint pain Immunologic/allergic: DENIES: Eczema Neurologic: DENIES: Abnormal gait Psychiatric: DENIES: Anxiety Past Family Social History Past Medical History BPH Hypertension Hyperlipidemia Coronary disease Past Surgical History Status post CABG 4 Allergies: Coded Allergies: Sulfa (Verified Allergy, Severe, 05/24/17) Trimethoprim (Verified Allergy, Severe, 05/24/17) Family History No prostate cancer history is noted Social History Presently denies smoking or drinking Physical Exam Vital Signs Date Time Temp Pulse Resp B/P Pulse Ox O2 Delivery O2 Flow Rate FiO2 05/28/17 11:53 98.2 100 18 157/97 98 05/28/17 10:12 97 05/28/17 09:05 98.3 100 20 149/75 97 05/28/17 09:00 100 05/28/17 07:00 120 05/28/17 07:00 113 05/28/17 06:00 113 05/28/17 05:00 107 05/28/17 04:00 108 05/28/17 03:50 98.3 111 16 158/79 94 05/28/17 03:00 107 05/28/17 02:00 105 05/28/17 01:00 96 05/28/17 00:00 180/96 05/28/17 00:00 90 05/27/17 23:20 98.6 91 16 160/90 96 05/27/17 23:00 89 05/27/17 22:00 90 05/27/17 21:00 112 05/27/17 20:06 95 05/27/17 20:00 106 05/27/17 19:30 96 Room Air 05/27/17 19:30 98.2 109 16 172/92 96 05/27/17 19:00 106 05/27/17 18:06 109 05/27/17 17:30 108 05/27/17 16:09 107 05/27/17 15:27 90 05/27/17 15:27 98 Room Air 05/27/17 15:27 98.1 103 18 139/75 98 05/27/17 14:10 98 05/27/17 13:38 99 Physical Exam GENERAL: This is a well-nourished, well-developed patient, in no apparent distress. SKIN: No rashes, ecchymoses or lesions. Cool and dry. HEAD: Atraumatic. Normocephalic. No temporal or scalp tenderness. EYES: Pupils equal round and reactive. Extraocular motions intact. No scleral icterus. No injection or drainage. ENT: Nose without bleeding, purulent drainage or septal hematoma. Throat without erythema, tonsillar hypertrophy or exudate. Uvula midline. Airway patent. NECK: Trachea midline. No JVD or lymphadenopathy. Supple, nontender, no meningeal signs. CARDIOVASCULAR: Regular rate and rhythm without murmurs, gallops, or rubs. RESPIRATORY: Clear to auscultation. Breath sounds equal bilaterally. No wheezes , rales, or rhonchi. GASTROINTESTINAL: Abdomen soft, non-tender, nondistended. No hepato-splenomegaly , or palpable masses. No guarding. GENITOURINARY: Normal phallus with testes descended, Bravo catheter in place draining clear urine. MUSCULOSKELETAL: Extremities without clubbing, cyanosis, or edema. No joint tenderness, effusion, or edema noted. No calf tenderness. Negative Homans sign bilaterally. NEUROLOGICAL: Awake and alert. Cranial nerves II through XII intact. Motor and sensory grossly within normal limits. Five out of 5 muscle strength in all muscle groups. Normal speech. Laboratory Tests Test 05/28/17 05/28/17 10:03 12:30 Sodium Level 128 Potassium Level 4.3 Chloride Level 92 Carbon Dioxide Level 29.1 Anion Gap 7 Blood Urea Nitrogen 16 Creatinine 1.03 Estimat Glomerular Filtration 71 Rate Random Glucose 91 Calcium Level 9.1 Phosphorus Level 2.3 Magnesium Level 2.1 Urine Color LIGHT-YELLOW Urine Turbidity CLEAR Urine pH 6.5 Urine Specific [place] 1.007 Urine Protein NEG Urine Glucose (UA) NEG Urine Ketones 10 Urine Occult Blood MOD Urine Nitrite NEG Urine Bilirubin NEG Urine Urobilinogen LESS THAN 2.0 Urine Leukocyte Esterase SMALL Urine RBC 39 Urine WBC 4 Urine Hyaline Casts 1 Urine Mucus FEW Microscopic Urinalysis Comment CATH-CULT NOT IND Result Diagram: 05/26/17 0425 05/28/17 1003 Imaging Last Impressions Chest X-Ray 05/25/17 0500 Signed Impressions: Service Date/Time: Sunday, May 25, 2017 03:54 - CONCLUSION: Pulmonary edema and slight left lung base consolidation. Questionable tiny left apical pneumothorax. Avery Zarate MD Assessment and Plan Assessment and Plan 71 year-old male status post CABG with urinary retention and history of BPH. Patient to resume Rapaflo 8 mg by mouth daily at bedtime. Discharged home with Bravo catheter and leg bag instruction. Patient follow-up with Dr. Ray next week for voiding trial. Michael Greenberg DO May 28, 2017 12:59
== END 2017-05-28 14:45 | disposition home health service (06) | DRG 235 ==
LOC: HSDI 05-24 05:20 → HCVR 05-24 12:40 → HCIN 05-26 15:24
PROVIDERS: ADMIT Thoracic Surgery (Cardiothoracic Vascular Surgery); ATTEND Thoracic Surgery (Cardiothoracic Vascular Surgery)
PROC: 06BQ0ZZ Excision of Left Saphenous Vein, Open Approach (ICD-10-PCS; 2017-05-24)
PROC: 06BP0ZZ Excision of Right Saphenous Vein, Open Approach (ICD-10-PCS; 2017-05-24)
PROC: 5A1221Z Performance of Cardiac Output, Continuous (ICD-10-PCS; 2017-05-24)
PROC: 5A1935Z Respiratory Ventilation, Less than 24 Consecutive Hours (ICD-10-PCS; 2017-05-24)
PROC: 30233R1 Transfusion of Nonautologous Platelets into Peripheral Vein, Percutaneous Approach (ICD-10-PCS; 2017-05-24)
PROC: 30233N1 Transfusion of Nonautologous Red Blood Cells into Peripheral Vein, Percutaneous Approach (ICD-10-PCS; 2017-05-24)
PROC: 02100Z9 Bypass Coronary Artery, One Artery from Left Internal Mammary, Open Approach (ICD-10-PCS; principal; 2017-05-24 06:51)
PROC: 021209W Bypass Coronary Artery, Three Arteries from Aorta with Autologous Venous Tissue, Open Approach (ICD-10-PCS; 2017-05-24 06:51)
DX: I25.118 Atherosclerotic heart disease of native coronary artery with other forms of angina pectoris (principal); T81.11XA Postprocedural cardiogenic shock, initial encounter; J95.821 Acute postprocedural respiratory failure; I47.2 Ventricular tachycardia; D69.6 Thrombocytopenia, unspecified; E87.1 Hypo-osmolality and hyponatremia; I48.91 Unspecified atrial fibrillation; D62 Acute posthemorrhagic anemia; I97.89 Other postprocedural complications and disorders of the circulatory system, not elsewhere classified; I10 Essential (primary) hypertension; Y83.2 Surgical operation with anastomosis, bypass or graft as the cause of abnormal reaction of the patient, or of later complication, without mention of misadventure at the time of the procedure; Y92.238 Other place in hospital as the place of occurrence of the external cause; E78.5 Hyperlipidemia, unspecified; R33.8 Other retention of urine; N40.1 Benign prostatic hyperplasia with lower urinary tract symptoms; K21.9 Gastro-esophageal reflux disease without esophagitis
CPT/HCPCS: 36415; 36430; 71010; 76937; 80048; 80053; 81001; 82805; 82948; 83735; 84100; 85014; 85025; 85027; 86850; 86900; 86901; 86920; 93005; 93306; 94002; 94150; 94640; 94664; 94667; 94668; J0131; J0171; J0282; J0360; J0461; J0690; J1265; J1644; J1815; J1940; J2150; J2250; J2370; J2720; J2765; J2930; J3010; J3370; J3475; J3480; J7040; J7050; J7060; J7120; P9016; P9035; P9047

== ENCOUNTER 2017-06-01 08:49 | Observation (INO) | payer MEDICARE, BC ==
[~2017-06-01] VITALS: Ht 175.3 cm; Wt 65.0 kg
[~2017-06-01 08:49] MED LIST changes: +AMIO200T PO; +ASPI81CH25 PO; +ATOR20TA15 PO; -BISO5TAB5 PO; +DOCU1CAP39 PO; +METO25TA3 PO; +NORC5TAB PO; +THERM PO; -TYLE325T PO
[2017-06-01 08:51] VITALS: BP 185/92; PULSE 72; RESP 20; TEMP 97.8; O2SAT 98
[2017-06-01] MEDS ORDERED: SODIUM CHLORIDE 0.9% FLUSH 10 ML FLUSH IVF PRN (09:15)
--- NOTE | 2017-06-01 09:20 | PD ---
HPI Chief Complaint: Complaint Time Seen by Provider: 09:12 Travel History International Travel<30 days: No Contact w/Intl Traveler<30days: No Traveled to known affect area: No History of Present Illness HPI This is a 71-year-old male history coronary artery disease, status post coronary artery bypass graft 4 vessels 8 days ago, who presents today with complaints of hematuria. The patient has a history of urinary retention and had a catheter placed while in the hospital. Apparently he had several catheter placed. There was no hematuria when he was discharged home. He states last night he started passing bright red blood through his catheter. He denies any abdominal pain. He denies any suprapubic pain. There are no other complaints time my examination. PFSH Past Medical History Hx Anticoagulant Therapy: Yes Arthritis: Yes (L HIP) Heart Rhythm Problems: Yes Cancer: Yes (SKIN) Cardiovascular Problems: Yes (RBBB) High Cholesterol: Yes Chest Pain: No Congestive Heart Failure: No Cerebrovascular Accident: Yes Diabetes: No Endocrine: No Gastrointestinal Disorders: Yes (GERD) GERD: Yes Glaucoma: Yes (PRE-GLAUCOMA) Genitourinary: Yes (ENLARGED PROSTATE) Hepatitis: No Hiatal Hernia: Yes Hypertension: Yes Immune Disorder: No Musculoskeletal: Yes Neurologic: Yes Psychiatric: No Reproductive: No Respiratory: No Integumentary: No Migraines: Yes Thyroid Disease: No (PT BEING TESTED FOR POSS HYPOTHYROID) Ulcer: No Past Surgical History Abdominal Surgery: No AICD: No Cardiac Surgery: Yes (HEART CATH 05/18/17, CABG 2016) Ear Surgery: No Endocrine Surgery: No Eye Surgery: No Genitourinary Surgery: No Joint Replacement: No Oral Surgery: Yes (WISDOM TEETH REMOVED) Pacemaker: No Thoracic Surgery: No Social History Tobacco Use: No Substance Use: No Allergies-Medications (Allergen,Severity, Reaction): Coded Allergies: Sulfa (Verified Allergy, Severe, 05/24/17) Trimethoprim (Verified Allergy, Severe, 05/24/17) Reported Meds & Prescriptions Reported Meds & Active Scripts Active [place] (Hydrocodone-Acetaminophen) 5-325 mg Tab 1 Tab PO Q4H PRN Thera M Plus (Multivitamins/Minerals Therapeutic) 1 Tab 1 Tab PO DAILY Metoprolol Tartrate 25 Mg Tab 50 Mg PO Q12HR Lisinopril 10 Mg Tab 10 Mg PO DAILY Dok (Docusate Sodium) 100 Mg Cap 100 Mg PO BID Atorvastatin (Atorvastatin Calcium) 20 Mg Tab 20 Mg PO HS Aspirin Low Strength (Aspirin) 81 Mg Chew 81 Mg PO DAILY Amiodarone (Amiodarone HCl) 200 Mg Tab 400 Mg PO Q12HR 400mg po bid x 3 days, then 200mg po bid x 3 days, then 200mg daily Reported Rapaflo (Silodosin) 8 Mg Cap 8 Mg PO DAILY Omeprazole 20 Mg Tab 20 Mg PO DAILY Multi-Vitamin Daily (Multiple Vitamin) 1 Tab Tab 1 Tab PO DAILY Review of Systems Except as stated in HPI: all other systems reviewed are Neg General / Constitutional: No: Fever, Chills HENT: No: Headaches, Lightheadedness Cardiovascular: No: Chest Pain or Discomfort, Palpitations Respiratory: No: Cough, Shortness of Breath Gastrointestinal: No: Nausea, Vomiting, Abdominal Pain Genitourinary: Positive: Hematuria, No: Pelvic Pain Musculoskeletal: No: Weakness, Pain Neurologic: No: Weakness, Dizziness, Headache Physical Exam Narrative GENERAL: Well-nourished, well-developed patient. SKIN: Focused skin assessment warm/dry. HEAD: Normocephalic. EYES: No scleral icterus. No injection or drainage. NECK: Supple, trachea midline. No JVD or lymphadenopathy. CARDIOVASCULAR: Regular rate and rhythm without murmurs, gallops, or rubs. There is a fresh sternotomy scar that appears to be healing well with no evidence of cellulitis or drainage. RESPIRATORY: Breath sounds equal bilaterally. No accessory muscle use. GASTROINTESTINAL: Abdomen soft, non-tender, nondistended. GENITOURINARY: Circumcised. Bravo catheter in place. Patient has leg bag with obvious hematuria noted. There is no bleeding at the meatus or around the catheter site. MUSCULOSKELETAL: No cyanosis, or edema. NEUROLOGICAL: Awake and alert. Cranial nerves II through XII intact. Motor and sensory grossly within normal limits. Five out of 5 muscle strength in all muscle groups. Normal speech. Data Data Last Documented VS Vital Signs Date Time Temp Pulse Resp B/P Pulse Ox O2 Delivery O2 Flow Rate FiO2 06/01/17 09:17 18 06/01/17 08:51 97.8 72 185/92 98 Room Air Orders Complete Blood Count With Diff (06/01/17 09:12) Basic Metabolic Panel (Bmp) (06/01/17 09:12) Ecg Monitoring (7/7/17 09:12) Iv Access Insert/Monitor (06/01/17 09:12) Sodium Chloride 0.9% Flush (Ns Flush) (06/01/17 09:15) Prothrombin Time / Inr (Pt) (06/01/17 09:12) Act Partial Throm Time (Ptt) (06/01/17 09:12) ^ Flush (06/01/17 09:12) Urinalysis - C+S If Indicated (06/01/17 09:21) Sodium Chlor 0.9% 1000 Ml Inj (Ns 1000 M (06/01/17 10:30) Place In Observation (06/01/17 ) Vital Signs (Adult) Q4H (06/01/17 11:38) Activity Oob With Assistance (06/01/17 11:38) Diet Heart Healthy (06/01/17 Lunch) Sodium Chlor 0.9% 1000 Ml Inj (Ns 1000 M (06/01/17 11:38) Sodium Chloride 0.9% Flush (Ns Flush) (06/01/17 11:45) Sodium Chloride 0.9% Flush (Ns Flush) (06/01/17 21:00) Ondansetron Inj (Zofran Inj) (06/01/17 11:45) Basic Metabolic Panel (Bmp) (06/02/17 06:00) Complete Blood Count With Diff (06/02/17 06:00) Scd Bilateral/Knee High LUCIA.BID (06/01/17 11:38) Naloxone Inj (Narcan Inj) (06/01/17 11:45) Docusate Sodium-Senna (Kaylee-Colace) (06/01/17 21:00) Magnesium Hydroxide Liq (Milk Of Magnesi (06/01/17 11:45) Sennosides (Senokot) (06/01/17 11:45) Bisacodyl Supp (Dulcolax Supp) (06/01/17 11:45) Lactulose Liq (Lactulose Liq) (06/01/17 11:45) Admit Order (Ed Use Only) (06/01/17 11:40) Amiodarone (Cordarone) (06/01/17 21:00) Aspirin Chew (Aspirin Chew) (06/02/17 09:00) Atorvastatin (Lipitor) (06/01/17 21:00) Docusate Sodium (Colace) (06/01/17 21:00) Acetamin-Hydrocod 325-5 Mg ([place] 5-325 (06/01/17 11:45) Lisinopril (Prinivil) (06/02/17 09:00) Metoprolol Tartrate (Lopressor) (06/01/17 21:00) Multivitamins-Minerals Therap (Theragran (06/02/17 09:00) (Nf) Multiple Vitamin (Multi-Vitamin Gladys (06/02/17 09:00) (Nf) Omeprazole (06/02/17 09:00) (Nf) Silodosin (Rapaflo) (06/02/17 09:00) Consult Urology (06/01/17 ) Labs Laboratory Tests Test 06/01/17 06/01/17 09:23 09:50 White Blood Count 11.5 TH/MM3 Red Blood Count 4.67 MIL/MM3 Hemoglobin 14.6 GM/DL Hematocrit 41.6 % Mean Corpuscular Volume 88.9 FL Mean Corpuscular Hemoglobin 31.2 PG Mean Corpuscular Hemoglobin 35.1 % Concent Red Cell Distribution Width 15.0 % Platelet Count 300 TH/MM3 Mean Platelet Volume 8.2 FL Neutrophils (%) (Auto) 82.2 % Lymphocytes (%) (Auto) 8.1 % Monocytes (%) (Auto) 6.8 % Eosinophils (%) (Auto) 2.2 % Basophils (%) (Auto) 0.7 % Neutrophils # (Auto) 9.4 TH/MM3 Lymphocytes # (Auto) 0.9 TH/MM3 Monocytes # (Auto) 0.8 TH/MM3 Eosinophils # (Auto) 0.2 TH/MM3 Basophils # (Auto) 0.1 TH/MM3 CBC Comment DIFF FINAL Differential Comment Prothrombin Time 10.6 SEC Prothromb Time International 1.0 RATIO Ratio Activated Partial 24.3 SEC Thromboplast Time Sodium Level 128 MEQ/L Potassium Level 4.6 MEQ/L Chloride Level 98 MEQ/L Carbon Dioxide Level 21.7 MEQ/L Anion Gap 8 MEQ/L Blood Urea Nitrogen 17 MG/DL Creatinine 0.88 MG/DL Estimat Glomerular Filtration 85 ML/MIN Rate Random Glucose 93 MG/DL Calcium Level 9.1 MG/DL Urine Color LIGHT-RED Urine Turbidity CLEAR Urine pH 5.0 Urine Specific [place] 1.007 Urine Protein NEG mg/dL Urine Glucose (UA) NEG mg/dL Urine Ketones NEG mg/dL Urine Occult Blood MOD Urine Nitrite NEG Urine Bilirubin NEG Urine Urobilinogen LESS THAN 2.0 MG/DL Urine Leukocyte Esterase NEG Urine RBC /hpf Urine WBC 7 /hpf Microscopic Urinalysis Comment CULT NOT INDICATED MDM Medical Decision Making Medical Screen Exam Complete: Yes Emergency Medical Condition: Yes Differential Diagnosis Hemorrhagic cystitis versus traumatic catheter versus bladder wall irritation versus bladder cancer Narrative Course 71-year-old male who status post coronary artery bypass graft 4 vessels 8 days ago, who presents today with hematuria. The patient was doing fine up until yesterday when he started noticing gross blood in his Bravo bag. He denies knee pain. He denies any other symptoms at this time. Patient is also noted to be hyponatremic. Given this and his hematuria, we will admit him under observation. He'll be a consult placed with Dr. Greenberg, urologist who saw him while he was in the hospital. He's been started on normal saline at 125 cc per hour. Case was discussed with Dr. Wall, [facility] hospitalist who was requested we admit the patient to Dr. Palacios. Diagnosis Primary Impression: Gross hematuria Additional Impressions: Hyponatremia status post CABG 8 days prior. Admitting Information Admitting Physician Requests: Observation Jg Guerra MD Jun 01, 2017 09:20
[2017-06-01 09:59] LABS: AUTOMATED NEUTROPHIL # 9.4 TH/MM3 (1.8-7.7); BASOPHIL # 0.1 TH/MM3 (0-0.2); BASOPHIL % 0.7 % (0.0-2.0); EOSINOPHIL # 0.2 TH/MM3 (0-0.4); EOSINOPHIL % 2.2 % (0.0-4.0); HEMATOCRIT 41.6 % (39.0-51.0); HEMO FLAGS DIFF FINAL; LYMPH % 8.1 % (9.0-44.0); LYMPHOCYTE # 0.9 TH/MM3 (1.0-4.8); MEAN CELL VOLUME 88.9 FL (80.0-100.0); MEAN CORPUSCULAR HEMOGLOBIN 31.2 PG (27.0-34.0); MEAN CORPUSCULAR HGB CONC 35.1 % (32.0-36.0); MONO % 6.8 % (0.0-8.0); NEUT % 82.2 % (16.0-70.0); PLATELET COUNT 300 TH/MM3 (150-450); RED BLOOD COUNT 4.67 MIL/MM3 (4.50-5.90); WHITE BLOOD COUNT 11.5 TH/MM3 (4.0-11.0)
[2017-06-01 10:10] LABS: APTT (PATIENT) 24.3 SEC (24.3-30.1); PROTHROMBIN TIME - PATIENT 10.6 SEC (9.8-11.6)
[2017-06-01 10:19] LABS: BICARBONATE 21.7 MEQ/L (21.0-32.0); POTASSIUM 4.6 MEQ/L (3.5-5.1)
[2017-06-01 10:29] LABS: BLOOD, URINE MOD (NEG); COMMENT (UR) CULT NOT INDICATED; CULTURE IF INDICATED CULT NOT INDICATED; GLUCOSE,URINE NEG (NEG); KETONE, URINE NEG (NEG); NITRITE,URINE NEG (NEG); URINE COLOR LIGHT-RED (YELLW/STRAW)
[2017-06-01] MEDS: SODIUM CHLOR 0.9% 1000 ML INJ 1,000 ML IV SCH ×4 (10:51→22:00)
[2017-06-01] MEDS ORDERED: NALOXONE HCL 0.4 MG/ML AMP IV PRN (11:45)
[2017-06-01] MEDS ORDERED: SODIUM CHLORIDE 0.9% FLUSH 10 ML FLUSH IV FLUSH PRN (11:45)
[2017-06-01] MEDS ORDERED: BISACODYL 10 MG SUPP RECTAL PRN (11:45)
[2017-06-01] MEDS ORDERED: SENNOSIDES 8.6 MG TAB PO PRN (11:45)
[2017-06-01] MEDS ORDERED: ACETAMINOPHEN/HYDROcodone 325 MG/5 MG TAB PO PRN (11:45)
[2017-06-01] MEDS ORDERED: MAGNESIUM HYDROXIDE SUSP 30 ML CUP PO PRN (11:45)
[2017-06-01] MEDS ORDERED: LACTULOSE SYRUP 20 GM/30 ML CUP PO PRN (11:45)
[2017-06-01] MEDS ORDERED: ONDANSETRON HCL 4 MG/2 ML VIAL IVP PRN (11:45)
[2017-06-01 15:30] VITALS: BP 180/97; PULSE 84; RESP 16; TEMP 97.5; O2SAT 97
--- NOTE | 2017-06-01 16:05 | MH ---
cc: DWAYNE TIAN MD DATE OF ADMISSION 06/01/2017 CHIEF COMPLAINT Hematuria. HISTORY OF PRESENT ILLNESS This is a 71-year-old male with past medical-surgical history significant for coronary artery disease status post coronary artery four-vessel bypass surgery 8 days ago, presented today with a complaint of hematuria. He has a Bravo catheter and because of the BPH and inability to urinate after the surgery he went home with a Bravo catheter in. He had urinary retention and he had several catheter placed and there is no hematuria when he was discharged home. He stated last night he started passing red blood through his catheter. He denies any abdominal pain. Denies any fever or chills, cough. He denies any abdominal pain, any fever or chills, any suprapubic pain, any nausea or vomiting, diarrhea or any other symptoms and other than that nothing significant. PAST MEDICAL-SURGICAL HISTORY Significant for arthritis, history of skin cancer, right bundle branch block, hyperlipidemia, cerebrovascular accident, gastroesophageal reflux disease. BPH. __ glaucoma, hiatal hernia, hypertension. Past surgical history significant for heart catheterization 05/18/2017 and CABG after that four vessels and wisdom teeth removed. SOCIAL HISTORY Denies any smoking, drinking, any drugs. Lives at home. FAMILY HISTORY The family history is significant for coronary artery disease, ___. ALLERGIES ALLERGY TO SULFA AND TRIMETHOPRIM. MEDICATIONS Include: 1. [place] 5-325 q.4 hours p.r.n. pain. 2. Thera M Plus multivitamin p.o. daily. 3. Metoprolol tartrate 50 milligrams q.12 hours. 4. Lisinopril 10 milligrams p.o. daily. 5. Colace 100 milligrams p.o. b.i.d. 6. Lipitor 20 milligrams p.o. at bedtime. 7. Aspirin 81 milligrams p.o. daily. 8. Amiodarone 200 milligrams q. 12-hour. 9. Rapaflo 8 milligrams p.o. daily. 10. Omeprazole 20 milligrams daily. 11. Multivitamin p.o. daily. REVIEW OF SYSTEMS Positive for hematuria, all other review of systems are negative. PHYSICAL EXAMINATION GENERAL: This is a 71-year male sitting on the bed, not in any acute distress. VITAL SIGNS: Temperature 97.8, heart rate 72, respiration 20, blood pressure 185/92, O2 saturation 98% on room air. HEENT: Normocephalic, atraumatic. EOMI. PERRL. Oral mucosa moist. NECK: Neck is supple. No visible thyromegaly or neck mass. Trachea central. CVS: Regular rate and rhythm. LUNGS: Respirations clear to auscultation bilaterally. ABDOMEN: Soft, nontender. Bowel sounds audible. EXTREMITIES: No cyanosis or clubbing. Full range of motion of all extremities. NEURO: Awake, alert, oriented x4. No focal deficits. SKIN: Warm and dry. PSYCH: The patient is cooperative. Mood and affect are normal. LABORATORY DATA Include CBC showed WBC count 11.5, hemoglobin was 14.6, hematocrit 41.6, platelet count is 300. BMP totally unremarkable except for sodium 128 low, GFR 85 low. PT 10.6, INR 1.0, APTT 24.3. Urine examination shows moderate blood, urine RBC innumerable. Culture not indicated. ASSESSMENT/PLAN 1. This is a 71-year-old male who came to the ER diagnosed with hematuria, exact etiology not known. Urology consulted. Monitoring hemoglobin. Further recommendation per urology. 2. History of coronary artery disease, continue the home medication. 3. History of hypertension, continue home medications. 4. History of BPH, continue with Flomax 0.4 milligrams p.o. daily. 5. History of atrial fibrillation, continue with amiodarone. 6. DVT prophylaxis, SCDs. 7. GI prophylaxis ,Protonix 40 milligrams p.o. 8. We are going to manage the patient on a daily basis and make recommendation on a daily basis. Dwayne Tian MD EA/DAVID /3:36 PM /3:51 PM
--- NOTE | 2017-06-01 16:44 | PD.CAR.PN ---
CVT Progress Note Subjective/Hospital Course: 71/ male known to our service , underwent CABG x 4 , bilateral EVH 05/24, postop course complicated by urinary retention/ required placement of urinary cath x 3 , was discharged home after being seen by Urology Dr Greenberg , was to follow up with his Urologist Dr Ontiveros this coming Sunday , when he developed hematuria with some clots He has progress well from [facility] standpoint, has follow up appointment in our office no new orders Objective: GENERAL: SKIN: Warm and dry. sternal incision intact and well approximated, incisions intact both EVH sites on each leg HEAD: Normocephalic. EYES: No scleral icterus. No injection or drainage. NECK: Supple, trachea midline. No JVD or lymphadenopathy. CARDIOVASCULAR: Regular rate and rhythm without murmurs, gallops, or rubs. RESPIRATORY: Breath sounds equal bilaterally. No accessory muscle use. GASTROINTESTINAL: Abdomen soft, non-tender, nondistended. MUSCULOSKELETAL: No cyanosis, or edema. BACK: Nontender without obvious deformity. No CVA tenderness. packer cath in place with obvious hematuria Vital Signs Date Time Temp Pulse Resp B/P Pulse Ox O2 Delivery O2 Flow Rate FiO2 06/01/17 15:30 97.5 84 16 180/97 97 06/01/17 09:17 18 06/01/17 08:51 97.8 72 20 185/92 98 Room Air Labs: Laboratory Tests Test 06/01/17 06/01/17 09:23 09:50 White Blood Count 11.5 TH/MM3 (4.0-11.0) Red Blood Count 4.67 MIL/MM3 (4.50-5.90) Hemoglobin 14.6 GM/DL (13.0-17.0) Hematocrit 41.6 % (39.0-51.0) Mean Corpuscular Volume 88.9 FL (80.0-100.0) Mean Corpuscular Hemoglobin 31.2 PG (27.0-34.0) Mean Corpuscular Hemoglobin 35.1 % Concent (32.0-36.0) Red Cell Distribution Width 15.0 % (11.6-17.2) Platelet Count 300 TH/MM3 (150-450) Mean Platelet Volume 8.2 FL (7.0-11.0) Neutrophils (%) (Auto) 82.2 % (16.0-70.0) Lymphocytes (%) (Auto) 8.1 % (9.0-44.0) Monocytes (%) (Auto) 6.8 % (0.0-8.0) Eosinophils (%) (Auto) 2.2 % (0.0-4.0) Basophils (%) (Auto) 0.7 % (0.0-2.0) Neutrophils # (Auto) 9.4 TH/MM3 (1.8-7.7) Lymphocytes # (Auto) 0.9 TH/MM3 (1.0-4.8) Monocytes # (Auto) 0.8 TH/MM3 (0-0.9) Eosinophils # (Auto) 0.2 TH/MM3 (0-0.4) Basophils # (Auto) 0.1 TH/MM3 (0-0.2) CBC Comment DIFF FINAL Differential Comment Prothrombin Time 10.6 SEC (9.8-11.6) Prothromb Time International 1.0 RATIO Ratio Activated Partial 24.3 SEC Thromboplast Time (24.3-30.1) Sodium Level 128 MEQ/L (136-145) Potassium Level 4.6 MEQ/L (3.5-5.1) Chloride Level 98 MEQ/L (98-107) Carbon Dioxide Level 21.7 MEQ/L (21.0-32.0) Anion Gap 8 MEQ/L (5-15) Blood Urea Nitrogen 17 MG/DL (7-18) Creatinine 0.88 MG/DL (0.60-1.30) Estimat Glomerular Filtration 85 ML/MIN (>89) Rate Random Glucose 93 MG/DL (74-106) Calcium Level 9.1 MG/DL (8.5-10.1) Urine Color LIGHT-RED (YELLW/STRAW) Urine Turbidity CLEAR (CLEAR) Urine pH 5.0 (5.0-8.5) Urine Specific [place] 1.007 (1.002-1.035) Urine Protein NEG mg/dL (NEG-TRACE) Urine Glucose (UA) NEG mg/dL (NEG) Urine Ketones NEG mg/dL (NEG) Urine Occult Blood MOD (NEG) Urine Nitrite NEG (NEG) Urine Bilirubin NEG (NEG) Urine Urobilinogen LESS THAN 2.0 MG/DL (LESS THAN 2.0) Urine Leukocyte Esterase NEG (NEG) Urine RBC /hpf (0-3) Urine WBC 7 /hpf (0-5) Microscopic Urinalysis Comment CULT NOT INDICATED Result Diagram: 06/01/17 0923 06/01/17 0923 Liliana Gotti Jun 01, 2017 16:44
[2017-06-01] MEDS: PANTOPRAZOLE SOD 40 MG DELAYED RELEASE TAB PO SCH (18:45)
--- NOTE | 2017-06-01 19:28 | PD.CONS ---
HPI Service Urology Consult Requested By Reason for Consult Hematuria Primary Care Physician Mary Porras M.D. Diagnosis: History of Present Illness 71yo male with history of BPH s/p CABGx4 last week seen in consultation for hematuria. Patient failed multiple voiding trials and had his packer catheter replaced prior to discharge. He has been doing well with the catheter until this am where he noticed blood in his urine. This progessively worsened and he came to the ED. He currently has a 16Fr packer catheter in place, bright red blood urine. Patient has been on rapaflo for his lower urinary tract symptoms with good results reporting improved urinary flow and frequency. Currently denies any pain, no fevers. Review of Systems ROS Limitations: Clinical Condition Constitutional: DENIES: Fever Endocrine: DENIES: Polydipsia Eyes: DENIES: Blurred vision Ears, nose, mouth, throat: DENIES: Hearing loss Respiratory: DENIES: Apneas, Cough Cardiovascular: DENIES: Chest pain Gastrointestinal: DENIES: Nausea, Vomiting Genitourinary: COMPLAINS OF: Hematuria Musculoskeletal: DENIES: Joint pain Integumentary: DENIES: Abnormal pigmentation Hematologic/lymphatic: DENIES: Bruising Immunologic/allergic: DENIES: Eczema Neurologic: DENIES: Abnormal gait Psychiatric: DENIES: Anxiety Except as stated in HPI: all other systems reviewed are Neg Past Family Social History Past Medical History CAD BPH Past Surgical History CABGx4 Reported Medications Reported Meds & Active Scripts Active [place] (Hydrocodone-Acetaminophen) 5-325 mg Tab 1 Tab PO Q4H PRN Thera M Plus (Multivitamins/Minerals Therapeutic) 1 Tab 1 Tab PO DAILY Metoprolol Tartrate 25 Mg Tab 50 Mg PO Q12HR Lisinopril 10 Mg Tab 10 Mg PO DAILY Dok (Docusate Sodium) 100 Mg Cap 100 Mg PO BID Atorvastatin (Atorvastatin Calcium) 20 Mg Tab 20 Mg PO HS Aspirin Low Strength (Aspirin) 81 Mg Chew 81 Mg PO DAILY Amiodarone (Amiodarone HCl) 200 Mg Tab 400 Mg PO Q12HR 400mg po bid x 3 days, then 200mg po bid x 3 days, then 200mg daily Reported Rapaflo (Silodosin) 8 Mg Cap 8 Mg PO DAILY Omeprazole 20 Mg Tab 20 Mg PO DAILY Multi-Vitamin Daily (Multiple Vitamin) 1 Tab Tab 1 Tab PO DAILY Allergies: Coded Allergies: Sulfa (Verified Allergy, Severe, 05/24/17) Trimethoprim (Verified Allergy, Severe, 05/24/17) Active Ordered Medications Current Medications Medications (Trade) Dose Ordered Sig/Eve Route Start Time Stop Time Status Last Admin Sodium Chloride 1,000 ml @ 125 mls/hr Q8H IV 06/01/17 10:30 06/01/17 18:46 (NS 1000 ml Inj) 1,000 ml @ 100 mls/hr Q10H IV 06/01/17 12:00 (NS Flush) 2 ml UNSCH PRN IV FLUSH 06/01/17 11:45 (NS Flush) 2 ml BID IV FLUSH 06/01/17 21:00 (Zofran Inj) 4 mg Q6H PRN IVP 06/01/17 11:45 (Narcan Inj) 0.4 mg UNSCH PRN IV 06/01/17 11:45 (Kaylee-Colace) 1 tab BID PO 06/01/17 21:00 (Milk Of Magnesia Liq) 30 ml Q12H PRN PO 06/01/17 11:45 (Senokot) 17.2 mg Q12H PRN PO 06/01/17 11:45 (Dulcolax Supp) 10 mg DAILY PRN RECTAL 06/01/17 11:45 (Lactulose Liq) 30 ml DAILY PRN PO 06/01/17 11:45 (Cordarone) 400 mg Q12HR PO 06/01/17 21:00 (Aspirin Chew) 81 mg DAILY PO 06/02/17 09:00 (Lipitor) 20 mg HS PO 06/01/17 21:00 (Colace) 100 mg BID PO 06/01/17 21:00 ([place] 5-325 Mg) 1 tab Q4H PRN PO 06/01/17 11:45 (Prinivil) 10 mg DAILY PO 06/02/17 09:00 (Lopressor) 50 mg Q12HR PO 06/01/17 21:00 (Theragran M Tab) 1 tab DAILY PO 06/02/17 09:00 (Flomax) 0.4 mg DAILY PO 06/02/17 09:00 (Protonix) 40 mg DAILY PO 06/01/17 17:30 06/01/17 18:45 Family History Family history reviewed and noncontributory to present illness Social History nonsmoker Physical Exam Vital Signs Date Time Temp Pulse Resp B/P Pulse Ox O2 Delivery O2 Flow Rate FiO2 06/01/17 15:30 97.5 84 16 180/97 97 06/01/17 09:17 18 06/01/17 08:51 97.8 72 20 185/92 98 Room Air Physical Exam GENERAL: This is a well-nourished, well-developed patient, in no apparent distress. SKIN: No rashes, ecchymoses or lesions. Cool and dry. HEAD: Atraumatic. Normocephalic. EYES: Pupils equal round and reactive. Extraocular motions intact. ENT: Nose without bleeding, purulent drainage. Airway patent. NECK: Trachea midline. No JVD or lymphadenopathy. CARDIOVASCULAR: Regular pulses, well perfused extremities RESPIRATORY: Nonlabored, equal chest rise GASTROINTESTINAL: Abdomen soft, non-tender, nondistended. GENITOURINARY: Circumcised phallus, bilateral descended testis, no masses. 16Fr packer, bloody urine MUSCULOSKELETAL: Extremities without clubbing, cyanosis, or edema. NEUROLOGICAL: Awake and alert. Motor and sensory grossly within normal limits. Normal speech. Lab results reviewed: Yes Laboratory Tests Test 06/01/17 06/01/17 09:23 09:50 White Blood Count 11.5 Red Blood Count 4.67 Hemoglobin 14.6 Hematocrit 41.6 Mean Corpuscular Volume 88.9 Mean Corpuscular Hemoglobin 31.2 Mean Corpuscular Hemoglobin 35.1 Concent Red Cell Distribution Width 15.0 Platelet Count 300 Mean Platelet Volume 8.2 Neutrophils (%) (Auto) 82.2 Lymphocytes (%) (Auto) 8.1 Monocytes (%) (Auto) 6.8 Eosinophils (%) (Auto) 2.2 Basophils (%) (Auto) 0.7 Neutrophils # (Auto) 9.4 Lymphocytes # (Auto) 0.9 Monocytes # (Auto) 0.8 Eosinophils # (Auto) 0.2 Basophils # (Auto) 0.1 CBC Comment DIFF FINAL Differential Comment Prothrombin Time 10.6 Prothromb Time International 1.0 Ratio Activated Partial 24.3 Thromboplast Time Sodium Level 128 Potassium Level 4.6 Chloride Level 98 Carbon Dioxide Level 21.7 Anion Gap 8 Blood Urea Nitrogen 17 Creatinine 0.88 Estimat Glomerular Filtration 85 Rate Random Glucose 93 Calcium Level 9.1 Urine Color LIGHT-RED Urine Turbidity CLEAR Urine pH 5.0 Urine Specific [place] 1.007 Urine Protein NEG Urine Glucose (UA) NEG Urine Ketones NEG Urine Occult Blood MOD Urine Nitrite NEG Urine Bilirubin NEG Urine Urobilinogen LESS THAN 2.0 Urine Leukocyte Esterase NEG Urine RBC Urine WBC 7 Microscopic Urinalysis Comment CULT NOT INDICATED Result Diagram: 06/01/1792206/01/17922 Assessment and Plan Problem List: (1) Urinary retention ICD Code: R33.9 Status: Acute (2) Gross hematuria ICD Code: R31.0 Status: Acute Assessment and Plan -Hematuria likely due to enlarged prostate -16Fr packer catheter exchanged for a 22Fr 3-way catheter -Hand irrigated catheter with 2L of sterile water. Several clots removed. Urine remained light pink -CBI started -Maintain CBI overnight wide open. -Will titrate to off over the course of the day tomorrow -Packer catheter to remain in place -If urine remains light pink to clear without CBI he would then be clear for discharge -Will follow Brian Roman MD Jun 01, 2017 19:28
[2017-06-01 20:10] VITALS: PULSE 92
[2017-06-01 20:18] VITALS: BP 148/73; PULSE 91; RESP 18; TEMP 98.5; O2SAT 96
[2017-06-01] MEDS: SODIUM CHLORIDE 0.9% FLUSH 10 ML FLUSH IV FLUSH SCH (20:54)
[2017-06-01] MEDS: ATORVASTATIN 20 MG TAB PO SCH (20:55)
[2017-06-01] MEDS: METOPROLOL TARTRATE 50 MG TAB PO SCH (20:55)
[2017-06-01] MEDS: DOCUSATE SODIUM 100 MG CAP PO SCH (20:55)
[2017-06-01] MEDS: DOCUSATE SODIUM 50 MG/SENNA 8.6 MG TAB PO SCH (20:55)
[2017-06-01] MEDS: AMIODARONE 200 MG TAB PO SCH (21:00)
[2017-06-02] VITALS (15 sets, daily range): BP systolic 0–193; BP diastolic 0–101; PULSE 78–100; RESP 16–21; TEMP 98–99.4; O2SAT 94–99
[2017-06-02] MEDS: SODIUM CHLOR 0.9% 1000 ML INJ 1,000 ML IV SCH ×3 (03:26→17:33)
[2017-06-02 05:46] LABS: BASOPHIL % 0.3 % (0.0-2.0); EOSINOPHIL # 0.1 TH/MM3 (0-0.4); EOSINOPHIL % 0.5 % (0.0-4.0); LYMPH % 4.9 % (9.0-44.0); LYMPHOCYTE # 0.6 TH/MM3 (1.0-4.8); MEAN CELL VOLUME 89.9 FL (80.0-100.0); MEAN CORPUSCULAR HGB CONC 33.3 % (32.0-36.0); MONO % 5.2 % (0.0-8.0); NEUT % 89.1 % (16.0-70.0); PLATELET COUNT 249 TH/MM3 (150-450); RED BLOOD COUNT 4.22 MIL/MM3 (4.50-5.90); RED CELL DISTRIBUTION WIDTH 14.8 % (11.6-17.2); WHITE BLOOD COUNT 12.3 TH/MM3 (4.0-11.0)
[2017-06-02 05:54] LABS: HEMO FLAGS AUTO DIFF
[2017-06-02 06:05] LABS: BICARBONATE 22.5 MEQ/L (21.0-32.0); POTASSIUM 3.9 MEQ/L (3.5-5.1)
[2017-06-02 07:19] LABS: PLATELET ESTIMATE SMEAR NORMAL (NORMAL); PLATELET MORPHOLOGY NORMAL (NORMAL); SCAN/DIFF AUTO DIFF CONFIRMED
[2017-06-02] MEDS ORDERED: PANTOPRAZOLE SOD 20 MG DELAYED RELEASE TAB PO SCH (09:00)
[2017-06-02] MEDS: DOCUSATE SODIUM 50 MG/SENNA 8.6 MG TAB PO SCH ×2 (09:00→21:00)
[2017-06-02] MEDS: SODIUM CHLORIDE 0.9% FLUSH 10 ML FLUSH IV FLUSH SCH ×2 (09:00→22:05)
[2017-06-02] MEDS ORDERED: NON-FORMULARY DRUG (Multiple Vitamin (Multi-Vitamin Daily) 1 TAB) PO SCH (09:00)
[2017-06-02] MEDS ORDERED: TAMSULOSIN HCL 0.4 MG CAP PO SCH (09:00)
--- NOTE | 2017-06-02 09:45 | HHI.PR ---
Subjective Remarks resting in bed packer with hematuria persists recent CABG, no chest pain afebrile (Latasha Cadet) Objective Objective Results - Vital Signs Date Time Temp Pulse Resp B/P Pulse Ox O2 Delivery O2 Flow Rate FiO2 06/02/17 07:30 98.0 92 18 153/87 97 06/02/17 04:04 98.9 87 21 144/77 94 06/02/17 03:45 92 06/02/17 02:15 0/0 06/02/17 01:14 87 147/82 06/02/17 00:17 98.8 90 21 193/101 99 06/02/17 00:05 92 06/01/17 23:10 18 06/01/17 20:18 98.5 91 18 148/73 96 06/01/17 20:10 92 06/01/17 15:30 97.5 84 16 180/97 97 I/O 06/01/17 06/01/17 06/01/17 06/02/17 06/02/17 06/02/17 07:00 15:00 23:00 07:00 15:00 23:00 Intake Total 1200 ml Output Total 8300 ml 1850 ml Balance -8300 ml -650 ml Intake IV Total 1200 ml Output Urine Total 8300 ml 1850 ml # Bowel Movements 1 (Latasha Cadet) Result Diagram: 06/02/17 0445 06/02/17 0445 ROS General: Weakness, Other (10 point ROS done) Cardiac: Other (recent CABG) /SOFTBALL UMPIRE: Other (packer multiple , hematuria) (Latasha Cadet) Physical Exam Physical Exam PHYSICAL EXAMINATION GENERAL: This is a slim male who appears to be in no acute distress. He is alert and awake, HEAD: Normocephalic, Facial features appear symmetric. OROPHARYNGEAL: Oropharynx without erythema or edema. NECK: Supple. No nuchal rigidity or lymphadenopathy. Trachea midline without deviation. CARDIAC: Regular rhythm, regular rate, S1 and S2 are heard. tele, LUNGS: Clear to auscultation bilaterally. ABDOMEN: Soft, nontender, Bowel sounds are heard in all four quadrants. EXTREMITIES: edema. Pulses equal bilateral. NEUROLOGICAL: Patient mood and affect appropriate.speech clear SKIN:Warm and moist, chest incision CDI (Latasha Cadet) A/P Assessment and Plan vital signs reviewed, normal trends for now labs reviewed, NA improved, check labs am, leukocytosis mild Hematuria recent CABG and ASA, Urology consult appreciate, maintain packer for now BPH, medical management, Flomax Hx CAD and CABG incision clean intact, encourage cough and deep breath, post CABG instructions Hx atrial fib, currently SR 90s, ECG monitoring Hyponatremia, IV hydration, monitor labs, improving with hydration Leukocytosis, mild DVT precations PUD precautions follow urology needs , hematuria still present. added Tylenol prn for pain, checked with Pharmacy about pt. taking Rapaflo instead of flomax D/W patient D/W nurse D/W Dr. Fraga, seen on his behalf (Latasha Cadet) Assessment and Plan seen, examined by myself, Dr Fraga, today 06/02/17 Discussed with patient Discussed with mid level provider The exam, history, and the medical decision-making described in the above note were completed with the assistance of the mid-level provider. I reviewed the findings presented. I attest that I had a [id number] encounter with the patient on the same day, and personally performed and documented my assessment and findings in the medical record. Admitted with hematuria Packer catheter in place, has been in for about a week Hematuria improving Urology following Possible discharge in 1-2 days (Modesto Fraga MD) Latasha Cadet Jun 02, 2017 09:45 Modesto Fraga MD Jun 02, 2017 18:58
[2017-06-02] MEDS: ASPIRIN 81 MG CHEW TAB PO SCH (10:22)
[2017-06-02] MEDS: AMIODARONE 200 MG TAB PO SCH (10:24)
[2017-06-02] MEDS: PANTOPRAZOLE SOD 40 MG DELAYED RELEASE TAB PO SCH (10:24)
[2017-06-02] MEDS: LISINOPRIL 10 MG TAB PO SCH (10:24)
[2017-06-02] MEDS: MULTIVITAMINS/MINERALS THERAPEUTIC TAB PO SCH (10:24)
[2017-06-02] MEDS: METOPROLOL TARTRATE 50 MG TAB PO SCH ×2 (10:24→22:05)
[2017-06-02] MEDS: DOCUSATE SODIUM 100 MG CAP PO SCH ×2 (10:24→21:00)
[2017-06-02] MEDS ORDERED: MISCELLANEOUS PHARMACY INFORMATION OTHER ONE (15:45)
[2017-06-02] MEDS ORDERED: ACETAMINOPHEN 325 MG TAB PO PRN (15:45)
--- NOTE | 2017-06-02 18:12 | HHI.PR ---
Subjective Patient symptoms today CBI running at moderate slow rate, clear urine noted. Patient had issue overnight with clotted catheter, not draining. Catheter was replaced by nursing staff to 24Fr 3way. Patient currently comfortable. Objective Vital Signs Vital Signs Date Time Temp Pulse Resp B/P Pulse Ox O2 Delivery O2 Flow Rate FiO2 06/02/17 16:18 88 06/02/17 15:15 99.4 89 16 148/80 95 06/02/17 13:00 86 06/02/17 11:11 98.0 78 16 138/80 98 06/02/17 09:15 100 06/02/17 07:30 98.0 92 18 153/87 97 06/02/17 04:04 98.9 87 21 144/77 94 06/02/17 03:45 92 06/02/17 02:15 0/0 06/02/17 01:14 87 147/82 06/02/17 00:17 98.8 90 21 193/101 99 06/02/17 00:05 92 06/01/17 23:10 18 06/01/17 20:18 98.5 91 18 148/73 96 06/01/17 20:10 92 Intake & Output 06/02/17 06/02/17 07:00 19:00 Intake Total 1200 ml Output Total 9350 ml 3400 ml Balance -8150 ml -3400 ml Intake IV Total 1200 ml Output Urine Total 9350 ml 3400 ml Result Diagram: 06/02/17 0445 06/02/17 044 Medications and IVs Current Medications Medications (Trade) Dose Ordered Sig/Eve Route Start Time Stop Time Status Last Admin (NS 1000 ml Inj) 1,000 ml @ 100 mls/hr Q10H IV 06/01/17 12:00 06/02/17 17:33 (NS Flush) 2 ml UNSCH PRN IV FLUSH 06/01/17 11:45 (NS Flush) 2 ml BID IV FLUSH 06/01/17 21:00 (Zofran Inj) 4 mg Q6H PRN IVP 06/01/17 11:45 (Narcan Inj) 0.4 mg UNSCH PRN IV 06/01/17 11:45 (Kaylee-Colace) 1 tab BID PO 06/01/17 21:00 (Milk Of Magnesia Liq) 30 ml Q12H PRN PO 06/01/17 11:45 (Senokot) 17.2 mg Q12H PRN PO 06/01/17 11:45 (Dulcolax Supp) 10 mg DAILY PRN RECTAL 06/01/17 11:45 (Lactulose Liq) 30 ml DAILY PRN PO 06/01/17 11:45 (Aspirin Chew) 81 mg DAILY PO 06/02/17 09:00 06/02/17 10:22 (Lipitor) 20 mg HS PO 06/01/17 21:00 (Colace) 100 mg BID PO 06/01/17 21:00 06/02/17 10:24 ([place] 5-325 Mg) 1 tab Q4H PRN PO 06/01/17 11:45 06/01/17 22:06 (Prinivil) 10 mg DAILY PO 06/02/17 09:00 06/02/17 10:24 (Lopressor) 50 mg Q12HR PO 06/01/17 21:00 06/02/17 10:24 (Theragran M Tab) 1 tab DAILY PO 06/02/17 09:00 06/02/17 10:24 (Protonix) 40 mg DAILY PO 06/01/17 17:30 06/02/17 10:24 ([place]) 0.1 mg Q6H PRN PO 06/02/17 01:00 (Tylenol) 650 mg Q4H PRN PO 06/02/17 15:45 06/02/17 16:06 (Cordarone) 200 mg DAILY PO 06/03/17 09:00 Assessment and Plan Problem List: (1) Urinary retention ICD Code: R33.9 Status: Acute (2) Gross hematuria ICD Code: R31.0 Status: Acute Assessment and Plan -24Fr 3 way catheter was hand irrigated with 1L of sterile water. Several large clots were removed from the bladder. After irrigation, clear urine was noted. -CBI resumed at a slow-moderate rate -Maintain CBI overnight. If urine remains clear, will stop CBI tomorrow morning -If urine remains clear with CBI off, then he would be clear for discharge tomorrow afternoon with follow-up with Dr. Ontiveros at already scheduled appt on Sunday. -Will follow Brian Roman MD Jun 02, 2017 18:12
[2017-06-02] MEDS: ATORVASTATIN 20 MG TAB PO SCH (21:00)
[2017-06-03] VITALS (15 sets, daily range): BP systolic 120–180; BP diastolic 67–96; PULSE 74–91; RESP 16–18; TEMP 98–98.9; O2SAT 95–98
[2017-06-03] MEDS: cloNIDine HCL 0.1 MG TAB PO PRN ×2 (00:59→23:57)
[2017-06-03 05:15] LABS: HEMATOCRIT 33.3 % (39.0-51.0); MEAN CELL VOLUME 89.9 FL (80.0-100.0); MEAN CORPUSCULAR HGB CONC 34.5 % (32.0-36.0); PLATELET COUNT 256 TH/MM3 (150-450); RED CELL DISTRIBUTION WIDTH 15.2 % (11.6-17.2); REVIEW FLAG FINAL; WHITE BLOOD COUNT 10.7 TH/MM3 (4.0-11.0)
[2017-06-03 05:39] LABS: BICARBONATE 21.9 MEQ/L (21.0-32.0); POTASSIUM 3.7 MEQ/L (3.5-5.1)
[2017-06-03] MEDS: SODIUM CHLOR 0.9% 1000 ML INJ 1,000 ML IV SCH (06:17)
[2017-06-03] MEDS ORDERED: MISCELLANEOUS NURSING INFORMATION OTHER ONE (08:30)
--- NOTE | 2017-06-03 08:35 | HHI.PR ---
Subjective Remarks resting in bed packer Packer draining minimally. Tinged urine, no clots seen recent CABG, Increase activity today to be out of bed afebrile Objective Objective Results - Vital Signs Date Time Temp Pulse Resp B/P Pulse Ox O2 Delivery O2 Flow Rate FiO2 06/03/17 08:09 98.2 82 16 152/76 98 06/03/17 03:48 98.9 87 16 132/77 95 06/03/17 03:00 88 137/75 06/03/17 02:10 89 128/71 06/03/17 00:58 91 171/87 06/03/17 00:29 87 06/02/17 23:57 98.6 87 18 172/87 06/02/17 20:42 98.4 89 18 142/72 98 06/02/17 20:11 89 06/02/17 16:18 88 06/02/17 15:15 99.4 89 16 148/80 95 06/02/17 13:00 86 06/02/17 11:11 98.0 78 16 138/80 98 06/02/17 09:15 100 I/O 06/02/17 06/02/17 06/02/17 06/03/17 06/03/17 06/03/17 07:00 15:00 23:00 07:00 15:00 23:00 Intake Total 1200 ml 1000 ml Output Total 1850 ml 1900 ml 4700 ml 3850 ml Balance -650 ml -1900 ml -4700 ml -2850 ml Intake IV Total 1200 ml 1000 ml Output Urine Total 1850 ml 1900 ml 4700 ml 3850 ml Result Diagram: 06/03/17 0415 06/03/17 0415 ROS General: Weakness (generalized), Other (10 point ROS done positives noted) Cardiac: Other (CABG, midsternal chest wound clean dry and intact) /HOUSE CALLS NURSE: Other (3-way urinary catheter with irrigation flowing freely no clots seen, minimal pink tinged urine) Neuro/MS: Other (mild anxiety over current condition) Physical Exam Physical Exam PHYSICAL EXAMINATION GENERAL: This is a well-developed, elderly male who appears to be in no acute distress. He is alert and awake, HEAD: Normocephalic Facial features appear symmetric. OROPHARYNGEAL: Oropharynx without erythema or edema. NECK: Supple. CARDIAC: Regular rhythm, regular rate, S1 and S2 are heard. Very soft minimal cardiac rub LUNGS: Clear to auscultation bilaterally. No rhonchi ABDOMEN: Soft, nontender Bowel sounds are heard in all four quadrants. , 3-way Packer catheter draining minimal color pink tinged urine no clots, irrigation flowing freely EXTREMITIES: No edema. Pulses equal bilateral. NEUROLOGICAL: Patient mood and affect mild anxiety over current condition SKIN:Warm and moist A/P Assessment and Plan vital signs reviewed, normal trends for now labs reviewed, anemia stable at 11.5, sodium 135, taking by mouth fluids well, appetite good Hematuria recent CABG and ASA, Urology consult appreciate, maintain packer for now, irrigate if visible clot seen or acute change in color, was irrigated 1 at 06 100 this morning, urine became increased in pink color and small visible clot seen, flushed without difficulty BPH, medical management, Flomax, changed medication to Rapaflo patient may use his on if needed Hx CAD and CABG incision clean intact, encourage cough and deep breath, post CABG instructions Hx atrial fib, currently SR normal rate and rhythm, ECG monitoring Hyponatremia, patient eating and drinking well sodium level 135, IV fluids DC'd Leukocytosis, resolved DVT precations PUD precautions added Tylenol prn for pain, increase activity today out of bed and ambulate Discharge planning probable this p.m. if patient has no further issues with urinary clotting, will discharge and follow up as an outpatient for any further treatment needs. Packer catheter will remain in place. D/W patient D/W nurse D/W Dr. Fraga, seen on his behalf Latasha Cadet Jun 03, 2017 08:35
[2017-06-03] MEDS ORDERED: AMIODARONE 200 MG TAB PO SCH (09:00)
[2017-06-03] MEDS: DOCUSATE SODIUM 100 MG CAP PO SCH ×2 (09:49→20:08)
[2017-06-03] MEDS: ASPIRIN 81 MG CHEW TAB PO SCH (09:49)
[2017-06-03] MEDS: DOCUSATE SODIUM 50 MG/SENNA 8.6 MG TAB PO SCH ×2 (09:49→20:10)
[2017-06-03] MEDS: MULTIVITAMINS/MINERALS THERAPEUTIC TAB PO SCH (09:50)
[2017-06-03] MEDS: SODIUM CHLORIDE 0.9% FLUSH 10 ML FLUSH IV FLUSH SCH ×2 (09:50→20:09)
[2017-06-03] MEDS: LISINOPRIL 10 MG TAB PO SCH (09:50)
[2017-06-03] MEDS: METOPROLOL TARTRATE 50 MG TAB PO SCH ×2 (09:50→20:08)
[2017-06-03] MEDS: PANTOPRAZOLE SOD 40 MG DELAYED RELEASE TAB PO SCH (09:50)
--- NOTE | 2017-06-03 17:44 | HHI.PR ---
Subjective Patient symptoms today Bravo Catheter in place, draining light pink urine. CBI off. Patient comfortable , no pain. No fevers. Hand irrigated catheter with no clots, urine remained clear with hand irrigation Objective Vital Signs Vital Signs Date Time Temp Pulse Resp B/P Pulse Ox O2 Delivery O2 Flow Rate FiO2 06/03/17 15:07 98.7 84 18 134/74 97 06/03/17 11:47 98.6 74 18 120/67 97 06/03/17 11:00 82 06/03/17 08:30 83 06/03/17 08:09 98.2 82 16 152/76 98 06/03/17 04:15 85 06/03/17 03:48 98.9 87 16 132/77 95 06/03/17 03:00 88 137/75 06/03/17 02:10 89 128/71 06/03/17 00:58 91 171/87 06/03/17 00:29 87 06/02/17 23:57 98.6 87 18 172/87 06/02/17 20:42 98.4 89 18 142/72 98 06/02/17 20:11 89 Intake & Output 06/03/17 06/03/17 07:00 19:00 Intake Total 1000 ml Output Total 7050 ml 3475 ml Balance -6050 ml -3475 ml Intake IV Total 1000 ml Output Urine Total 7050 ml 3475 ml Result Diagram: 06/03/17 0415 06/03/17414 Objective Remarks Bravo in place, light pink urine. Irrigated with no clots, cleared immediately Medications and IVs Current Medications Medications (Trade) Dose Ordered Sig/Eve Route Start Time Stop Time Status Last Admin (NS Flush) 2 ml UNSCH PRN IV FLUSH 06/01/17 11:45 (NS Flush) 2 ml BID IV FLUSH 06/01/17 21:00 06/03/17 09:50 (Zofran Inj) 4 mg Q6H PRN IVP 06/01/17 11:45 (Narcan Inj) 0.4 mg UNSCH PRN IV 06/01/17 11:45 (Kaylee-Colace) 1 tab BID PO 06/01/17 21:00 06/03/17 09:49 (Milk Of Magnesia Liq) 30 ml Q12H PRN PO 06/01/17 11:45 (Senokot) 17.2 mg Q12H PRN PO 06/01/17 11:45 (Dulcolax Supp) 10 mg DAILY PRN RECTAL 06/01/17 11:45 (Lactulose Liq) 30 ml DAILY PRN PO 06/01/17 11:45 (Aspirin Chew) 81 mg DAILY PO 06/02/17 09:00 06/03/17 09:49 (Lipitor) 20 mg HS PO 06/01/17 21:00 (Colace) 100 mg BID PO 06/01/17 21:00 06/03/17 09:49 ([place] 5-325 Mg) 1 tab Q4H PRN PO 06/01/17 11:45 06/01/17 22:06 (Prinivil) 10 mg DAILY PO 06/02/17 09:00 06/03/17 09:50 (Lopressor) 50 mg Q12HR PO 06/01/17 21:00 06/03/17 09:50 (Theragran M Tab) 1 tab DAILY PO 06/02/17 09:00 06/03/17 09:50 (Protonix) 40 mg DAILY PO 06/01/17 17:30 06/03/17 09:50 (Catapres) 0.1 mg Q6H PRN PO 06/02/17 01:00 06/03/17 00:59 (Tylenol) 650 mg Q4H PRN PO 06/02/17 15:45 06/02/17 16:06 (Cordarone) 200 mg DAILY PO 06/03/17 09:00 06/03/17 09:49 Assessment and Plan Problem List: (1) Urinary retention ICD Code: R33.9 Status: Acute (2) Gross hematuria ICD Code: R31.0 Status: Acute Assessment and Plan -Catheter hand irrigated today with over 500cc sterile water. No clots removed. Urine completely clear with hand irrigation -Patient has now been off CBI all day with light pink to clear urine -Patient clear for discharge with follow-up with his Urologist, Dr. Ontiveros, tomorrow at already scheduled appointment -Please call with questions Brian Roman MD Jun 03, 2017 17:44
[2017-06-03] MEDS ORDERED: AMIO200T PO (17:53)
[2017-06-03] MEDS: ATORVASTATIN 20 MG TAB PO SCH (20:11)
[2017-06-04 00:15] VITALS: PULSE 82
[2017-06-04 00:41] VITALS: BP 143/82; PULSE 80; RESP 16; TEMP 98.4; O2SAT 97
--- NOTE | 2017-06-04 02:00 | RADRPT ---
EXAM DATE/TIME: 06/04/2017 01:40 [facility] COMPARISON: No previous studies available for comparison. INDICATIONS : Hematuria. ORAL CONTRAST: No oral contrast ingested. RADIATION DOSE: CTDIvol (mGy) MEDICAL HISTORY : Cardiovascular disease. Hypertension. CVA. Skin cancer. SURGICAL HISTORY : None. ENCOUNTER: Initial ACUITY: 1 day PAIN SCALE: 0/10 LOCATION: pelvis TECHNIQUE: Volumetric scanning of the pelvis was performed. Using automated exposure control and adjustment of the mA and/or kV according to patient size, radiation dose was kept as low as reasonably achievable t o obtain optimal diagnostic quality images. DICOM format image data is available electronically for review and comparison. FINDINGS: Contrast was instilled in the bladder via a Bravo catheter BOWEL/MESENTERY: The visualized small and large bowel demonstrate no acute abnormality. There is no free fluid. BLADDER: There is marked thickening of the bladder wall diffusely. No evidence of extravasation. RETROPERITONEUM: There is no aneurysm or lymphadenopathy. REPRODUCTIVE: The prostate is quite enlarged INGUINAL: There is no lymphadenopathy or hernia. MUSCULOSKELETAL: Within normal limits for patient age. CONCLUSION: There is diffuse wall thickening of the bladder. No evidence of leak or extravasation. The prostate i s enlarged. Hayden Dutton MD on June 04, 2017 at 1:55 Board Certified Radiologist. This report was verified electronically.
[2017-06-04 04:35] VITALS: PULSE 80
[2017-06-04 05:39] VITALS: BP 154/84; PULSE 80; RESP 18; TEMP 98; O2SAT 96
== END 2017-06-04 08:15 | disposition home or self-care (01) ==
LOC: NEPE 08:49 → NEDA 11:42 → NEPHCDU 14:21
PROVIDERS: ADMIT Family Medicine; ATTEND Family Medicine
DX: R31.0 Gross hematuria (principal); R33.8 Other retention of urine; E87.1 Hypo-osmolality and hyponatremia; I25.10 Atherosclerotic heart disease of native coronary artery without angina pectoris; Z95.1 Presence of aortocoronary bypass graft; E78.5 Hyperlipidemia, unspecified; K21.9 Gastro-esophageal reflux disease without esophagitis; M19.90 Unspecified osteoarthritis, unspecified site; N40.1 Benign prostatic hyperplasia with lower urinary tract symptoms; I48.91 Unspecified atrial fibrillation; Z79.899 Other long term (current) drug therapy; Z79.82 Long term (current) use of aspirin; Z79.01 Long term (current) use of anticoagulants; I45.10 Unspecified right bundle-branch block; K44.9 Diaphragmatic hernia without obstruction or gangrene; I10 Essential (primary) hypertension; Z85.828 Personal history of other malignant neoplasm of skin
CPT/HCPCS: 72192; 80048; 81001; 85025; 85027; 85610; 85730; 96360; 99285; G0378; J7030

== ENCOUNTER → 2017-06-26 | Outpatient (CLI) | payer MEDICARE, BC ==
[2017-06-26 12:05] LABS: HEMATOCRIT 35.7 % (39.0-51.0); MEAN CELL VOLUME 90.5 FL (80.0-100.0); MEAN CORPUSCULAR HEMOGLOBIN 31.3 PG (27.0-34.0); MEAN CORPUSCULAR HGB CONC 34.6 % (32.0-36.0); PLATELET COUNT 268 TH/MM3 (150-450); RED BLOOD COUNT 3.95 MIL/MM3 (4.50-5.90); RED CELL DISTRIBUTION WIDTH 15.5 % (11.6-17.2); REVIEW FLAG FINAL; WHITE BLOOD COUNT 12.8 TH/MM3 (4.0-11.0)
[2017-06-26 13:03] LABS: BICARBONATE 24.7 MEQ/L (21.0-32.0)
== END ==
LOC: ELAB 10:39
PROVIDERS: ATTEND Thoracic Surgery (Cardiothoracic Vascular Surgery)
DX: I25.10 Atherosclerotic heart disease of native coronary artery without angina pectoris (principal)
CPT/HCPCS: 36415; 80048; 85027